=== PATIENT | female | born 1930 | race Caucasian/White ===

== ENCOUNTER 2017-03-21 16:23 | Observation (INO) | payer OTHER, MEDICARE ==
[2017-03-21] MEDS ORDERED: DIPHENHYDRAMINE HCL IV 50 MG/ML VIAL IVP ONE (16:49)
[2017-03-21] MEDS ORDERED: METHYLPREDNISOLONE PF 125MG/VIAL IVP ONE (16:49)
--- NOTE | 2017-03-21 16:55 | Emergency Department Record ---
History of Present Illness - General Chief complaint: Bite Insect/other Stated complaint: BEE STINGS Time Seen by Provider: 03/21/17 16:48 Source: Patient Mode of Arrival: EMS Limitations: No limitations - History of Present Illness Initial comments: The patient is here due to sustaining multiple bee stings about 2 hours ago and now feeling weak and a little confused. She was stung over the arms and legs and has had mild itching. After the encounter she did go inside her house and felt very weak and a little confused so she called 911. EMS did find the patient alert and oriented in the house with no ZORAN or voice changes. Presently she is having itching all over but no ZORAN, SOB, or swelling. The patient denies any hx of allergy to bee stings. MD complaint: Insect bite/sting Onset/Timin -: Hour(s) Location: R hand, LLE, RLE Severity: Mild Quality: Other Consistency: Intermittent Improves with: None Worsens with: None Context: Witnessed insect bite Associated symptoms: Other Treatment Prior to Arrival Comment:: IV per EMS - Related Data Allergies Allergy/AdvReac Type Severity Reaction Status Date / Time acetaminophen [From Tylenol] Allergy HYPERSENSIT Verified 03/21/17 16:32 IVITY amoxicillin Allergy HIVES Verified 03/21/17 16:32 aspirin Allergy HYPERSENSIT Verified 03/21/17 16:32 IVITY hydrochlorothiazide Allergy RASH Verified 03/21/17 16:32 [From Dyazide] lidocaine Allergy DIFFICULTY Verified 03/21/17 16:32 SWALLOWING methylprednisolone Allergy BEHAVIORAL Verified 03/21/17 16:32 CHANGES naproxen [From Naprosyn] Allergy RASH Verified 03/21/17 16:32 oxaprozin [From Daypro] Allergy bleeding Verified 03/21/17 16:32 propoxyphene napsylate Allergy RASH Verified 03/21/17 16:32 [From Darvocet-N] triamterene [From Dyazide] Allergy RASH Verified 03/21/17 16:32 diclofenac sodium AdvReac RAPID Verified 03/21/17 16:32 [From Arthrotec] HEART RATE hydrocodone bitartrate AdvReac RAPID Verified 03/21/17 16:32 [From Vicodin] HEART RATE indomethacin [From Indocin] AdvReac ABDOMINAL Verified 03/21/17 16:32 PAIN indomethacin sodium AdvReac ABDOMINAL Verified 03/21/17 16:32 [From Indocin] PAIN meperidine HCl [From Demerol] AdvReac NAUSEA AND Verified 03/21/17 16:32 VOMITING metoprolol succinate AdvReac slow heart Verified 03/21/17 16:32 [From Toprol XL] rate misoprostol [From Arthrotec] AdvReac RAPID Verified 03/21/17 16:32 HEART RATE oxycodone AdvReac DIZZINESS Verified 03/21/17 16:32 verapamil HCl [From Calan] AdvReac slow heart Verified 03/21/17 16:32 rate Travel Screening - Travel/Exposure Within Last 30 Days Have you traveled within the last 30 days?: No - Travel/Exposure Within Last Year Have you traveled outside the [place] in the last year?: No - Additonal Travel Details Have you been exposed to anyone with a communicable illness?: No - Travel Symptoms Symptom Screening: None Review of Systems Constitutional: Denies: Chills, Fever Eyes: Denies: Eye discharge ENT: Denies: Congestion, Other Respiratory: Denies: Dyspnea Past Medical History - SOCIAL HISTORY Smoking Status: Former smoker Alcohol Use: None Drug Use: None - RESPIRATORY Hx Respiratory Disorders: No - CARDIOVASCULAR Hx Cardio Disorders: Yes Hx Hypertension: Yes - NEURO Hx Neuro Disorders: No - GI Hx GI Disorders: Yes Hx Irritable Bowel: Yes Comment:: stomach issues - Hx Genitourinary Disorders: Yes Hx Bladder Problem: Yes (frequency/overactive bladder) Comment:: bladder lift surgery, hysterectomy - ENDOCRINE Hx Endocrine Disorders: No Hx Diabetes: No Hx Thyroid Disease: No - MUSCULOSKELETAL Hx Musculoskeletal Disorders: Yes Comment:: scoliosis - PSYCH Hx Psych Problems: No - HEMATOLOGY/ONCOLOGY Hx Hematology/Oncology Disorders: Yes Hx Cancer: Yes (skin) Family Medical History Any Significant Family History?: No Physical Exam - General General Appearance: Alert, Cooperative, No acute distress - Head Head exam: Atraumatic, Normocephalic, Normal inspection - Eye Eye exam: Normal appearance, PERRL - ENT Throat exam: Normal inspection. negative: Tonsillar erythema, Tonsillar exudate - Neck Neck exam: Normal inspection, Full ROM. negative: Tenderness - Respiratory Respiratory exam: Normal lung sounds bilaterally. negative: Respiratory distress - Cardiovascular Cardiovascular Exam: Regular rate, Normal rhythm, Normal heart sounds - GI/Abdominal GI/Abdominal exam: Soft, Normal bowel sounds. negative: Tenderness - Extremities Extremities exam: negative: Normal inspection (There are multiple erythematous sting lesions to the arms and legs.) - Neurological Neurological exam: Alert, Oriented X3. negative: Altered, Motor sensory deficit - Skin Skin exam: Rash (There is a blancing diffuse macular papular rash to the trunk and minimally the extremities.) Course Vital Signs 03/21/17 03/21/17 16:33 16:45 Temperature 97.4 F L Pulse Rate 72 Respiratory 18 Rate Blood Pressure 130/63 Pulse Ox 96 - Reevaluation(s) Reevaluation #1: The patient is doing very well at this time but still does have a pruritic rash all over her trunk and extremities. She has no ZORAN, cough, or SOB and is drinking normally. I did discuss the option of being discharged to home but the patient does not have anyone to stay with her and is reluctant to be discharged. Due to that I did discuss the case with Ewa (COMPUTER [employer] DES[employer]TER) and she will accept the patient to the hospital overnight. 03/21/17 17:55 Medical Decision Making - Data Complexity MDM Data: Labs Ordered and/or Reviewed - Lab Data Result diagrams: 03/21/17 16:18 03/21/17 16:18 Disposition Disposition: Admit Clinical Impression: Allergic reaction to bee sting Disposition: Still a Patient at [facility] Decision to Admit: Admit from ER Decision to Admit Date: 03/21/17 Decision to Admit Time: 17:58 Accepting Physician: Nia Time Discussed w/Accepting Physician: 17:58 Condition: (2) Stable Time of Disposition: 17:58 Quality - Quality Measures Quality Measures: N/A - Blood Pressure Screening View Details: Yes Does Patient Have Any of the Following: No Blood Pressure Classification: Hypertensive Reading Systolic Measurement: 156 Diastolic Measurement: 76 Screening for High Blood Pressure: < Pre-Hypertensive BP, F/U Documented > [ [id number]] Pre-Hypertensive Follow-up Interventions: Referral to alternative/primary care provider.
[2017-03-21 17:12] LABS: BASO % 0.1 % (0-6); EOS % 0.8 % (0-6); HEMATOCRIT 43.6 % (35.0-47.0); HEMOGLOBIN 14.2 gm/dl (11.6-16.0); MEAN CELL VOLUME 92.2 fl (81-97); MEAN CORPUSCULAR HGB CONC 32.6 g/dl (32-36); MONO % 7.1 % (0-9); PLATELET COUNT 305 K/uL (130-400); RED BLOOD COUNT 4.73 M/uL (3.80-5.40); RED CELL DISTRIBUTION WIDTH 13.7 % (11.5-14.5); WHITE BLOOD COUNT W/O DIFF 8.3 K/uL (4.2-12.2)
[2017-03-21 17:30] LABS: ALB/GLOB RATIO 1.2 (1.1-1.8); ALBUMIN 4.2 g/dL (4.0-5.0); ALKALINE PHOSPHATASE 89 U/L (35-104); ALT/SGPT 26 U/L (<33); AST/SGOT 39 U/L (10.0-35.0); BLOOD UREA NITROGEN 53.2 mg/dL (17.4-49.2); CREATININE 0.7 mg/dL (0.5-0.9); EST GLOMERULAR FILTRATION RATE > 60 mL/min; GLUCOSE,RANDOM 165 mg/dL (74-109); TOTAL PROTEIN 7.7 g/dL (6.6-8.7)
[2017-03-21] MEDS ORDERED: 0.9 % SODIUM CHLORIDE 1000ML 1,000 ML IV PRN (18:29)
[2017-03-21] MEDS ORDERED: DIPHENHYDRAMINE HCL IV 50 MG/ML VIAL IVP PRN (18:29)
[2017-03-21] MEDS ORDERED: METHYLPREDNISOLONE 40MG/VIAL IM SCH (18:45)
[2017-03-21] MEDS: METHYLPREDNISOLONE PF 125MG/VIAL IVP SCH (19:42)
[2017-03-22] MEDS: METHYLPREDNISOLONE PF 125MG/VIAL IVP SCH ×2 (02:17→09:45)
[2017-03-22] MEDS ORDERED: METOPROLOL SUCC 25 MG TAB.ER PO SCH (10:00)
--- NOTE | 2017-03-22 10:44 | History & Physical ---
History of Present Illness - Date of Service Date of Service for History & Physical: 03/22/17 - History of Present Illness Admitting Diagnosis: 1. Acute Allergic Reaction due to Multiple Bee Stings. History of Present Illness: 86 y/o female with CC multiple bee stings admitted for acute allergic reaction without anaphylaxis. Past medical history includes former smoker, HTN, IBS, overactive bladder, scoliosis, skin cancer. Prior to arrival was doing yard work and stepped in a mass of ground bees and was swarmed. Was able to get into the house. About 2 hours after being stung several times began feeling weak and disoriented and called 911. At the time of arrival was itching all extremities but denied any ZORAN, shortness or breath, throat/tongue/lip swelling or wheezing. Denies history of bee sting allergy. While in the ED VSS, no respiratory distress. Was given benedryl, soumedrol and depomedrol without adverse reaction. Labs grossly unremarkable. Admitted to floor for observation after multiple bee stings, lives alone, disorientation and weakness after being stung. 03/22/17- sitting on the side of the bed requesting discharge home. Reports itching to extremities has improved. No respiratory distress or trouble breathing. Denies any further feelings of disorientation or weakness. No new nursing concerns. Has tolerated solumedrol and benedryl without adverse reaction. PCP: Dr Sanders Travel Screening - Travel/Exposure Within Last 30 Days Have you traveled within the last 30 days?: No - Travel/Exposure Within Last Year Have you traveled outside the [place] in the last year?: No - Additonal Travel Details Have you been exposed to anyone with a communicable illness?: No - Travel Symptoms Symptom Screening: None Review of Systems Constitutional: Denies: Chills, Fever Eyes: Denies: Eye discharge ENT: Denies: Congestion, Other Respiratory: Denies: Dyspnea Past Medical History - SOCIAL HISTORY Smoking Status: Former smoker Alcohol Use: None Drug Use: None - RESPIRATORY Hx Respiratory Disorders: No - CARDIOVASCULAR Hx Cardio Disorders: Yes Hx Hypertension: Yes - NEURO Hx Neuro Disorders: No - GI Hx GI Disorders: Yes Hx Irritable Bowel: Yes Comment:: stomach issues - Hx Genitourinary Disorders: Yes Hx Bladder Problem: Yes (frequency/overactive bladder) Comment:: bladder lift surgery, hysterectomy - ENDOCRINE Hx Endocrine Disorders: No Hx Diabetes: No Hx Thyroid Disease: No - MUSCULOSKELETAL Hx Musculoskeletal Disorders: Yes Comment:: scoliosis - PSYCH Hx Psych Problems: No - HEMATOLOGY/ONCOLOGY Hx Hematology/Oncology Disorders: Yes Hx Cancer: Yes (skin) Family Medical History Any Significant Family History?: No H&P Meds/Allergies - Allergies Allergies: Allergies Allergy/AdvReac Type Severity Reaction Status Date / Time acetaminophen [From Tylenol] Allergy HYPERSENSIT Verified 03/21/17 16:32 IVITY amoxicillin Allergy HIVES Verified 03/21/17 16:32 aspirin Allergy HYPERSENSIT Verified 03/21/17 16:32 IVITY hydrochlorothiazide Allergy RASH Verified 03/21/17 16:32 [From Dyazide] lidocaine Allergy DIFFICULTY Verified 03/21/17 16:32 SWALLOWING methylprednisolone Allergy BEHAVIORAL Verified 03/21/17 16:32 CHANGES naproxen [From Naprosyn] Allergy RASH Verified 03/21/17 16:32 oxaprozin [From Daypro] Allergy bleeding Verified 03/21/17 16:32 propoxyphene napsylate Allergy RASH Verified 03/21/17 16:32 [From Darvocet-N] triamterene [From Dyazide] Allergy RASH Verified 03/21/17 16:32 diclofenac sodium AdvReac RAPID Verified 03/21/17 16:32 [From Arthrotec] HEART RATE hydrocodone bitartrate AdvReac RAPID Verified 03/21/17 16:32 [From Vicodin] HEART RATE indomethacin [From Indocin] AdvReac ABDOMINAL Verified 03/21/17 16:32 PAIN indomethacin sodium AdvReac ABDOMINAL Verified 03/21/17 16:32 [From Indocin] PAIN meperidine HCl [From Demerol] AdvReac NAUSEA AND Verified 03/21/17 16:32 VOMITING metoprolol succinate AdvReac slow heart Verified 03/21/17 16:32 [From Toprol XL] rate misoprostol [From Arthrotec] AdvReac RAPID Verified 03/21/17 16:32 HEART RATE oxycodone AdvReac DIZZINESS Verified 03/21/17 16:32 verapamil HCl [From Calan] AdvReac slow heart Verified 03/21/17 16:32 rate - Home Medications Previous Rx's Medication Instructions Recorded Prednisone [Prednisone 20Mg] 40 mg PO DAILY #10 tab 03/22/17 - Active Medications Active Medications: Current Medications Diphenhydramine HCl (Benadryl Iv) 25 mg IVP Q6H PRN PRN Reason: Allergy Symptoms Last Admin: 03/22/17 01:05 Dose: 25 mg Sodium Chloride () 1,000 mls @ 75 mls/hr IV .[id number] PRN PRN Reason: LARGE VOLUME IV Last Admin: 03/22/17 02:18 Dose: 75 mls/hr Methylprednisolone Sodium Succinate (Solu-Medrol) 40 mg IVP Q8H COUNTS INCLUDE 234 BEDS AT THE [facility] Last Admin: 03/22/17 09:45 Dose: 40 mg Metoprolol Succinate (Toprol Xl) 12.5 mg PO DAILY COUNTS INCLUDE 234 BEDS AT THE [facility] Last Admin: 03/22/17 09:45 Dose: 12.5 mg Physical Exam - Vital Signs Vital Signs: Vital Signs - Last 24 Hrs Temp Pulse Resp BP BP Pulse Ox 03/22/17 03:50 97.9 F 72 18 136/80 94 L 03/21/17 18:29 97.4 F L 69 18 163/87 96 - General General Appearance: Alert, Oriented x3, Cooperative, No acute distress Limitations: No limitations - Head Head exam: Atraumatic, Normocephalic, Normal inspection - Eye Eye exam: Normal appearance, PERRL - ENT ENT exam: Normal orophraynx Mouth exam: Tongue normal. negative: Muffled voice Throat exam: Normal inspection. negative: Tonsillar erythema, Tonsillar exudate - Neck Neck exam: Normal inspection, Full ROM. negative: Tenderness - Respiratory Respiratory exam: Normal lung sounds bilaterally. negative: Respiratory distress - Cardiovascular Cardiovascular Exam: Regular rate, Normal rhythm, Normal heart sounds - GI/Abdominal GI/Abdominal exam: Soft, Normal bowel sounds. negative: Tenderness - Extremities Extremities exam: negative: Normal inspection (There are multiple erythematous sting lesions to the arms and legs.) - Neurological Neurological exam: Alert, Oriented X3. negative: Altered, Motor sensory deficit - Skin Skin exam: Rash (There is a blanching diffuse macular papular rash to the trunk and minimally the extremities. No wheals noted.) Results - Labs Result Diagrams: 03/21/17 16:18 03/21/17 16:18 VTE H&P Assessment - Risk for VTE Risk for VTE: Yes Risk Level: Low Risk Assessment Date: 03/22/17 Risk Assessment Time: 12:48 VTE Orders Placed or Will Be Placed: Yes Plan - Detailed Diagnosis and Plan (1) Allergic reaction to bee sting Current Visit: Yes Status: Acute Base Code: T63.441A - TOXIC EFFECT OF VENOM OF BEES, ACCIDENTAL, INIT Comment: 03/22/17 - no anaphylactic reaction - has tolerated solumedrol and benedryl - itching has improved - ambulating independently in facility - no further disorientation or weakness - discharge today with follow up with PCP 1-2 weeks (2) Altered mental status Current Visit: No Status: Acute Qualifiers: Altered mental status type: unspecified Qualified Code(s): R41.82 - Altered mental status, unspecified Base Code: R41.82 - ALTERED MENTAL STATUS, UNSPECIFIED Comment: 03/22/17 - likely related to traumatic event - has not been disoriented since admit (3) DVT prophylaxis Current Visit: No Status: Acute Base Code: [id number] - Comment: 03/22/17- nursing to encourage frequent ambulation (4) Full code status Current Visit: No Status: Acute Base Code: Z78.9 - OTHER SPECIFIED HEALTH STATUS Comment: 03/22/17- will remain full code during this hospitalization
--- NOTE | 2017-03-22 10:46 | Discharge Summary ---
Providers Discharge Summary Date: 03/22/17 Date of admission: 03/21/17 18:27 Expected Date of Discharge: 03/22/17 Attending physician: DAMASO SAHNI Primary care physician: Estella Sanders Physical Exam - Vital Signs Vital Signs: Vital Signs - Last 24 Hrs Temp Pulse Resp BP BP Pulse Ox 03/22/17 03:50 97.9 F 72 18 136/80 94 L 03/21/17 18:29 97.4 F L 69 18 163/87 96 - General General Appearance: Alert, Cooperative, No acute distress Limitations: No limitations - Head Head exam: Atraumatic, Normocephalic, Normal inspection - Eye Eye exam: Normal appearance, PERRL - ENT Throat exam: Normal inspection. negative: Tonsillar erythema, Tonsillar exudate - Neck Neck exam: Normal inspection, Full ROM. negative: Tenderness - Respiratory Respiratory exam: Normal lung sounds bilaterally. negative: Respiratory distress - Cardiovascular Cardiovascular Exam: Regular rate, Normal rhythm, Normal heart sounds - GI/Abdominal GI/Abdominal exam: Soft, Normal bowel sounds. negative: Tenderness - Extremities Extremities exam: negative: Normal inspection (There are multiple erythematous sting lesions to the arms and legs.) - Neurological Neurological exam: Alert, Oriented X3. negative: Altered, Motor sensory deficit - Skin Skin exam: Rash (There is a blancing diffuse macular papular rash to the trunk and minimally the extremities.) Hospitalization - Hospitalization Admission Diagnosis: 1. Acute Allergic Reaction due to Multiple Bee Stings. - Problem List/Discharge Diagnosis (1) Allergic reaction to bee sting Current Visit: Yes Status: Acute Base Code: T63.441A - TOXIC EFFECT OF VENOM OF BEES, ACCIDENTAL, INIT Comment: 03/22/17 - no anaphylactic reaction - has tolerated solumedrol and benedryl - itching has improved, will transition to PO steroids at discharge - ambulating independently in facility - no further disorientation or weakness - discharge today with follow up with PCP 1-2 weeks (2) Altered mental status Current Visit: No Status: Acute Discharge Diagnosis: Altered mental status type: unspecified Qualified Code(s): R41.82 - Altered mental status, unspecified Base Code: R41.82 - ALTERED MENTAL STATUS, UNSPECIFIED Comment: 03/22/17 - likely related to traumatic event - has not been disoriented since admit (3) DVT prophylaxis Current Visit: No Status: Acute Base Code: [id number] - Comment: 03/22/17- nursing to encourage frequent ambulation (4) Full code status Current Visit: No Status: Acute Base Code: Z78.9 - OTHER SPECIFIED HEALTH STATUS Comment: 03/22/17- will remain full code during this hospitalization - Hospitalization Course Disposition: Home, Self-Care Hospital Course: 86 y/o female with CC multiple bee stings admitted for acute allergic reaction without anaphylaxis. Past medical history includes former smoker, HTN, IBS, overactive bladder, scoliosis, skin cancer. Prior to arrival was doing yard work and stepped in a mass of ground bees and was swarmed. Was able to get into the house. About 2 hours after being stung several times began feeling weak and disoriented and called 911. At the time of arrival was itching all extremities but denied any ZORAN, shortness or breath, throat/tongue/lip swelling or wheezing. Denies history of bee sting allergy. While in the ED VSS, no respiratory distress. Was given benedryl, soumedrol and depomedrol without adverse reaction. Labs grossly unremarkable. Admitted to floor for observation after multiple bee stings, lives alone, disorientation and weakness after being stung. 03/22/17- sitting on the side of the bed requesting discharge home. Reports itching to extremities has improved. No respiratory distress or trouble breathing. Denies any further feelings of disorientation or weakness. No new nursing concerns. Has tolerated solumedrol and benedryl without adverse reaction. PCP: Dr Sanders Condition at Discharge: (2) Stable Discharge Medications - Discharge Medications Prescriptions: Prednisone [Prednisone 20Mg] 40 mg PO DAILY #10 tab Home Medications: Ambulatory Orders Metoprolol Succinate 12.5 mg PO DAILY 11/26/15 [Last Taken 03/21/17] Prednisone [Prednisone 20Mg] 40 mg PO DAILY #10 tab 03/22/17 [Last Taken Unknown ] Discharge Plan - Discharge Instructions Activity at Discharge: Resume Usual Activities As Tolerated Diet at Discharge: Regular Diet Additional Instructions: follow up with PCP 1-2 weeks Quality Measures - Quality Measures Quality Measures: Advance Directives, Documentation of Current Medications in Medical Record, Elder Maltreatment Screen and Follow-Up Plan, Screening for High Blood Pressure and F/U Documented - Current Medications Quality Measure: Measure #130: Documentation of Current Medications Documentation of Current Medications: <Current Medications Documented/Reviewed> [G1827] - Blood Pressure Screening Quality Measure: Screening for High Blood Pressure and Follow-Up Documented Does Patient Have Any of the Following: Active Dx of HTN Blood Pressure Classification: Hypertensive Reading Systolic Measurement: 156 Diastolic Measurement: 76 Screening for High Blood Pressure: Patient Exclusion, Hx of HTN [G9744] - Advance Directives Quality Measure: Measure #47: Care Plan Advance Directives Established: No Advance Directives Information Provided To Patient: No Advance Directives on File: No Living Will: No Power of Yard Demurrage Clerk: Yes Power of Yard Demurrage Clerk Name: eleazar baeza Advance Care Planning: <Care Plan/Decision Maker Documented; Discussed & Documented> [[id number]] - Elder Abuse Suspicion Index Screening: Elder Abuse Suspicion Index Screening Rely on people for bathing, dressing, shopping, banking, etc: No Prevented from getting food, clothes, medication, etc: No Made to feel shamed or threatened by someone: No Forced to sign papers or use money against will: No Feel afraid, touched in ways not wanted or hurt physically: No Poor eye contact, withdrawn, malnourished, cuts or bruises: No Screening Result: Negative result EASI Reference Information: Chema BECERRA, Bridget C, Piero D, Misa M.Development and validation of a tool to assist physicians identification of elder abuse: The Elder Abuse Suspicion Index (EASI ). Journal of Elder Abuse and Neglect, 2008; 20 (3): 276-300. - Elder Maltreatment Screen Quality Measures: Elder Maltreatment Screen and Follow-Up Plan Elder Maltreatment Screen: <Negative, No Follow-Up Plan Required> [G8734]
== END 2017-03-22 11:15 | disposition home or self-care (01) ==
LOC: ER 16:23 → MEDSURG 18:27
PROVIDERS: ADMIT Family Medicine; ATTEND Family Medicine
DX: T63.441A Toxic effect of venom of bees, accidental (unintentional), initial encounter (principal); Z87.891 Personal history of nicotine dependence; I10 Essential (primary) hypertension; M41.9 Scoliosis, unspecified; K58.9 Irritable bowel syndrome, unspecified
CPT/HCPCS: 99285 ×2; 96374; 96375; 85025; 80053; G0378 ×2; 99220; J1200; J2930

== ENCOUNTER 2017-03-22 18:58 | Emergency (ER) | payer OTHER, MEDICARE ==
[2017-03-22] MEDS: METHYLPREDNISOLONE PF 125MG/VIAL IVP ONE (19:17)
[2017-03-22] MEDS: DIPHENHYDRAMINE HCL IV 50 MG/ML VIAL IVP ONE (19:17)
--- NOTE | 2017-03-22 19:21 | Emergency Department Record ---
History of Present Illness - General Chief complaint: Bite Insect/other Stated complaint: BEE STINGS Time Seen by Provider: 03/22/17 19:07 Source: Patient Mode of Arrival: Wheelchair Limitations: No limitations - History of Present Illness Initial comments: pt has multiple bee stings for the 2nd day in a row. she came here yesterday and was hospitalized for bee stings. she went home today and received multiple more stings in her front yard. she is having no darian or swallowing. she does have hives MD complaint: Insect bite/sting Onset/Timin -: Minutes(s) Hx Tetanus Toxoid Vaccination: Yes Patient Tetanus UTD (within 5 yrs): Yes Location: Generalized, Head, Face, Back, LUE, RUE, LLE, RLE Severity: Moderate Quality: Other Consistency: Getting worse Improves with: Cold therapy, Medication Worsens with: Movement, Other Context: Witnessed insect bite Associated symptoms: Itching Treatments Prior to Arrival: None - Related Data Previous Rx's Medication Instructions Recorded Prednisone [Prednisone 20Mg] 40 mg PO DAILY #10 tab 03/22/17 Allergies Allergy/AdvReac Type Severity Reaction Status Date / Time acetaminophen [From Tylenol] Allergy HYPERSENSIT Verified 03/21/17 16:32 IVITY amoxicillin Allergy HIVES Verified 03/21/17 16:32 aspirin Allergy HYPERSENSIT Verified 03/21/17 16:32 IVITY hydrochlorothiazide Allergy RASH Verified 03/21/17 16:32 [From Dyazide] lidocaine Allergy DIFFICULTY Verified 03/21/17 16:32 SWALLOWING methylprednisolone Allergy BEHAVIORAL Verified 03/21/17 16:32 CHANGES naproxen [From Naprosyn] Allergy RASH Verified 03/21/17 16:32 oxaprozin [From Daypro] Allergy bleeding Verified 03/21/17 16:32 propoxyphene napsylate Allergy RASH Verified 03/21/17 16:32 [From Darvocet-N] triamterene [From Dyazide] Allergy RASH Verified 03/21/17 16:32 diclofenac sodium AdvReac RAPID Verified 03/21/17 16:32 [From Arthrotec] HEART RATE hydrocodone bitartrate AdvReac RAPID Verified 03/21/17 16:32 [From Vicodin] HEART RATE indomethacin [From Indocin] AdvReac ABDOMINAL Verified 03/21/17 16:32 PAIN indomethacin sodium AdvReac ABDOMINAL Verified 03/21/17 16:32 [From Indocin] PAIN meperidine HCl [From Demerol] AdvReac NAUSEA AND Verified 03/21/17 16:32 VOMITING metoprolol succinate AdvReac slow heart Verified 03/21/17 16:32 [From Toprol XL] rate misoprostol [From Arthrotec] AdvReac RAPID Verified 03/21/17 16:32 HEART RATE oxycodone AdvReac DIZZINESS Verified 03/21/17 16:32 verapamil HCl [From Calan] AdvReac slow heart Verified 03/21/17 16:32 rate Travel Screening - Travel/Exposure Within Last 30 Days Have you traveled within the last 30 days?: No - Travel Symptoms Symptom Screening: None Review of Systems Reviewed: No additional complaints except as noted below Constitutional: Reports: As per HPI. Denies: Chills, Fever, Malaise, Night sweats, Weakness, Weight change Eyes: Reports: As per HPI. Denies: Eye discharge, Eye pain, Photophobia, Vision change ENT: Reports: As per HPI. Denies: Congestion, Dental pain, Ear pain, Epistaxis , Hearing loss, Throat pain Respiratory: Reports: As per HPI. Denies: Cough, Dyspnea, Hemoptysis, Stridor, Wheezes Cardiovascular: Reports: As per HPI. Denies: Arrhythmia, Chest pain, Dyspnea on exertion, Edema, Murmurs, Orthopnea, Palpitations, Paroxysmal nocturnal dyspnea, Rheumatic Fever, Syncope Endocrine: Reports: As per HPI. Denies: Fatigue, Heat or cold intolerance, Polydipsia, Polyuria Gastrointestinal: Reports: As per HPI. Denies: Abdominal pain, Constipation, Diarrhea, Hematemesis, Hematochezia, Melena, Nausea, Vomiting Genitourinary: Reports: As per HPI. Denies: Abnormal menses, Discharge, Dyspareunia, Dysuria, Frequency, Hematuria, Incontinence, Retention, Urgency Musculoskeletal: Reports: As per HPI. Denies: Arthralgia, Back pain, Gout, Joint swelling, Myalgia, Neck pain Skin: Reports: As per HPI. Denies: Bruising, Change in color, Change in hair/ nails, Lesions, Pruritus, Rash Neurological: Reports: As per HPI. Denies: Abnormal gait, Confusion, Headache, Numbness, Paresthesias, Seizure, Tingling, Tremors, Vertigo, Weakness Psychiatric: Reports: As per HPI. Denies: Anxiety, Auditory hallucinations, Depression, Homicidal thoughts, Suicidal thoughts, Visual hallucinations Hematological/Lymphatic: Reports: As per HPI. Denies: Anemia, Blood Clots, Easy bleeding, Easy bruising, Swollen glands Past Medical History - SOCIAL HISTORY Smoking Status: Former smoker Alcohol Use: None Drug Use: None - RESPIRATORY Hx Respiratory Disorders: No - CARDIOVASCULAR Hx Cardio Disorders: Yes Hx Hypertension: Yes - NEURO Hx Neuro Disorders: No - GI Hx GI Disorders: Yes Hx Irritable Bowel: Yes Comment:: stomach issues - Hx Genitourinary Disorders: Yes Hx Bladder Problem: Yes (frequency/overactive bladder) Comment:: bladder lift surgery, hysterectomy - ENDOCRINE Hx Endocrine Disorders: No Hx Diabetes: No Hx Thyroid Disease: No - MUSCULOSKELETAL Hx Musculoskeletal Disorders: Yes Comment:: scoliosis - PSYCH Hx Psych Problems: No - HEMATOLOGY/ONCOLOGY Hx Hematology/Oncology Disorders: Yes Hx Cancer: Yes (skin) Family Medical History Any Significant Family History?: Yes Hx Cancer: Brother/Sister Hx Heart Disease: Father Physical Exam - General General Appearance: Alert, Oriented x3, Cooperative, Mild distress - Head Head exam: Normal inspection - Eye Eye exam: Normal appearance, PERRL, EOMI Pupils: Normal accommodation - ENT ENT exam: Normal exam, Mucous membranes moist, Normal external ear exam, Normal orophraynx Ear exam: Normal external inspection. negative: External canal tenderness Nasal Exam: Normal inspection. negative: Discharge, Sinus tenderness Mouth exam: Normal external inspection, Tongue normal Teeth exam: Normal inspection. negative: Dental caries Throat exam: Normal inspection. negative: Tonsillar erythema, Tonsillar exudate - Neck Neck exam: Normal inspection, Full ROM. negative: Tenderness - Respiratory Respiratory exam: Normal lung sounds bilaterally. negative: Respiratory distress - Cardiovascular Cardiovascular Exam: Regular rate, Normal rhythm, Normal heart sounds - GI/Abdominal GI/Abdominal exam: Soft, Normal bowel sounds. negative: Tenderness - Rectal Rectal exam: Deferred - exam: Deferred - Extremities Extremities exam: Normal inspection, Full ROM, Normal capillary refill. negative: Tenderness - Back Back exam: Reports: Normal inspection, Full ROM. Denies: Muscle spasm, Rash noted, Tenderness - Neurological Neurological exam: Alert, CN II-XII intact, Normal gait, Oriented X3 - Psychiatric Psychiatric exam: Normal affect, Normal mood - Skin Skin exam: Dry, Erythema, Intact, Normal color, Urticaria, Warm Type of lesion: Bite/sting Distribution of rash: Face, RUE, LUE, RLE, LLE Description of rash: Urticarial Course Vital Signs 03/22/17 19:02 Temperature 97.9 F Pulse Rate 89 Respiratory 24 Rate Blood Pressure 132/78 Pulse Ox 91 L - Reevaluation(s) Reevaluation #1: 03/22/17 22:00 pt is doing much better Disposition Disposition: Discharge Clinical Impression: Bee sting reaction Qualifiers: Encounter type: initial encounter Injury intent: accidental or unintentional Qualified Code(s): T63.441A - Toxic effect of venom of bees, accidental ( unintentional), initial encounter Disposition: Home, Self-Care Condition: (1) Good Instructions: Insect Bite or Sting (ED) Additional Instructions: follow up with family doctor. return sooner if worse. benadryl 25mg every 6 hours if needed. avoid bees. Forms: Patient Portal Access Quality - Quality Measures Quality Measures: N/A - Blood Pressure Screening Does Patient Have Any of the Following: No Blood Pressure Classification: Pre-Hypertensive BP Reading Systolic Measurement: 132 Diastolic Measurement: 78 Screening for High Blood Pressure: < Pre-Hypertensive BP, F/U Documented > [ [id number]] Pre-Hypertensive Follow-up Interventions: Follow-up with rescreen every year.
== END 2017-03-22 22:05 | disposition home or self-care (01) ==
LOC: ER 18:58
DX: T63.441A Toxic effect of venom of bees, accidental (unintentional), initial encounter (principal); L50.9 Urticaria, unspecified; Y92.007 Garden or yard of unspecified non-institutional (private) residence as the place of occurrence of the external cause
CPT/HCPCS: 96374; 96375; 99284; J1200; J2930

== ENCOUNTER 2017-07-06 10:54 | Observation (INO) | payer MEDICARE, BC ==
[2017-07-06] MEDS ORDERED: NITROGLYCERIN 0.4MG SL TABLET #25 BTL SL ONE (11:19)
[2017-07-06 11:38] LABS: HEMATOCRIT 43.1 % (35.0-47.0); HEMOGLOBIN 13.9 gm/dl (11.6-16.0); MEAN CELL VOLUME 93.5 fl (81-97); MEAN CORPUSCULAR HEMOGLOBIN 30.2 pg (27-33); MEAN CORPUSCULAR HGB CONC 32.3 g/dl (32-36); MEAN PLATELET VOLUME 11.9 fl (7.4-10.4); PLATELET COUNT 286 K/uL (130-400); RED BLOOD COUNT 4.61 M/uL (3.80-5.40); RED CELL DISTRIBUTION WIDTH 13.9 % (11.5-14.5); WHITE BLOOD COUNT W/O DIFF 14.7 K/uL (4.2-12.2)
[2017-07-06 11:47] LABS: BLOOD UREA NITROGEN 19 mg/dL (8-23); CREATININE 0.5 mg/dL (0.5-0.9); EST GLOMERULAR FILTRATION RATE > 60 mL/min
[2017-07-06 11:50] LABS: GLUCOSE,RANDOM 95 mg/dL (74-109)
[2017-07-06 11:53] LABS: CREATINE PHOSPHOKINASE 46 U/L (26-192)
--- NOTE | 2017-07-06 12:21 | Emergency Department Record ---
History of Present Illness - General Chief Complaint: Chest Pain Stated Complaint: CHEST PAIN Time Seen by Provider: 07/06/17 11:14 Source: Patient Mode of Arrival: Wheelchair Limitations: No limitations - History of Present Illness Initial Comments: pt started having cp last night intermittantly that radiates to her jaw and arm and shoulder Onset/Timin -: Days(s) Onset: During rest Pain Location: Left chest Pain Radiation: LUE, Jaw/teeth Severity scale (1-10): 10 Quality: Sharp Consistency: Intermittent Improves With: Nothing Worsens With: Nothing Treatments Prior to Arrival: None - Related Data Allergies Allergy/AdvReac Type Severity Reaction Status Date / Time acetaminophen [From Tylenol] Allergy HYPERSENSIT Verified 03/21/17 16:32 IVITY amoxicillin Allergy HIVES Verified 03/21/17 16:32 aspirin Allergy HYPERSENSIT Verified 03/21/17 16:32 IVITY hydrochlorothiazide Allergy RASH Verified 03/21/17 16:32 [From Dyazide] lidocaine Allergy DIFFICULTY Verified 03/21/17 16:32 SWALLOWING methylprednisolone Allergy BEHAVIORAL Verified 03/21/17 16:32 CHANGES naproxen [From Naprosyn] Allergy RASH Verified 03/21/17 16:32 oxaprozin [From Daypro] Allergy bleeding Verified 03/21/17 16:32 propoxyphene napsylate Allergy RASH Verified 03/21/17 16:32 [From Darvocet-N] triamterene [From Dyazide] Allergy RASH Verified 03/21/17 16:32 diclofenac sodium AdvReac RAPID Verified 03/21/17 16:32 [From Arthrotec] HEART RATE hydrocodone bitartrate AdvReac RAPID Verified 03/21/17 16:32 [From Vicodin] HEART RATE indomethacin [From Indocin] AdvReac ABDOMINAL Verified 03/21/17 16:32 PAIN indomethacin sodium AdvReac ABDOMINAL Verified 03/21/17 16:32 [From Indocin] PAIN meperidine HCl [From Demerol] AdvReac NAUSEA AND Verified 03/21/17 16:32 VOMITING metoprolol succinate AdvReac slow heart Verified 03/21/17 16:32 [From Toprol XL] rate misoprostol [From Arthrotec] AdvReac RAPID Verified 03/21/17 16:32 HEART RATE oxycodone AdvReac DIZZINESS Verified 03/21/17 16:32 verapamil HCl [From Calan] AdvReac slow heart Verified 03/21/17 16:32 rate Travel Screening - Travel/Exposure Within Last 30 Days Have you traveled within the last 30 days?: No Review of Systems Reviewed: No additional complaints except as noted below Constitutional: Reports: As per HPI. Denies: Chills, Fever, Malaise, Night sweats, Weakness, Weight change Eyes: Reports: As per HPI. Denies: Eye discharge, Eye pain, Photophobia, Vision change ENT: Reports: As per HPI. Denies: Congestion, Dental pain, Ear pain, Epistaxis , Hearing loss, Throat pain Respiratory: Reports: As per HPI. Denies: Cough, Dyspnea, Hemoptysis, Stridor, Wheezes Cardiovascular: Reports: As per HPI. Denies: Arrhythmia, Chest pain, Dyspnea on exertion, Edema, Murmurs, Orthopnea, Palpitations, Paroxysmal nocturnal dyspnea, Rheumatic Fever, Syncope Endocrine: Reports: As per HPI. Denies: Fatigue, Heat or cold intolerance, Polydipsia, Polyuria Gastrointestinal: Reports: As per HPI. Denies: Abdominal pain, Constipation, Diarrhea, Hematemesis, Hematochezia, Melena, Nausea, Vomiting Genitourinary: Reports: As per HPI. Denies: Abnormal menses, Discharge, Dyspareunia, Dysuria, Frequency, Hematuria, Incontinence, Retention, Urgency Musculoskeletal: Reports: As per HPI. Denies: Arthralgia, Back pain, Gout, Joint swelling, Myalgia, Neck pain Skin: Reports: As per HPI. Denies: Bruising, Change in color, Change in hair/ nails, Lesions, Pruritus, Rash Neurological: Reports: As per HPI. Denies: Abnormal gait, Confusion, Headache, Numbness, Paresthesias, Seizure, Tingling, Tremors, Vertigo, Weakness Psychiatric: Reports: As per HPI. Denies: Anxiety, Auditory hallucinations, Depression, Homicidal thoughts, Suicidal thoughts, Visual hallucinations Hematological/Lymphatic: Reports: As per HPI. Denies: Anemia, Blood Clots, Easy bleeding, Easy bruising, Swollen glands Past Medical History - SOCIAL HISTORY Smoking Status: Former smoker Alcohol Use: None Drug Use: None - RESPIRATORY Hx Respiratory Disorders: No - CARDIOVASCULAR Hx Cardio Disorders: Yes Hx Hypertension: Yes - NEURO Hx Neuro Disorders: No - GI Hx GI Disorders: Yes Hx Irritable Bowel: Yes Comment:: stomach issues - Hx Genitourinary Disorders: Yes Hx Bladder Problem: Yes (frequency/overactive bladder) Comment:: bladder lift surgery, hysterectomy - ENDOCRINE Hx Endocrine Disorders: No Hx Diabetes: No Hx Thyroid Disease: No - MUSCULOSKELETAL Hx Musculoskeletal Disorders: Yes Comment:: scoliosis - PSYCH Hx Psych Problems: No - HEMATOLOGY/ONCOLOGY Hx Hematology/Oncology Disorders: Yes Hx Cancer: Yes (skin) Family Medical History Any Significant Family History?: Yes Hx Cancer: Brother/Sister Hx Heart Disease: Father Physical Exam - General General Appearance: Alert, Oriented x3, Cooperative, Mild distress - Head Head exam: Normal inspection - Eye Eye exam: Normal appearance, PERRL, EOMI Pupils: Normal accommodation - ENT ENT exam: Normal exam, Mucous membranes moist, Normal external ear exam, Normal orophraynx Ear exam: Normal external inspection. negative: External canal tenderness Nasal Exam: Normal inspection. negative: Discharge, Sinus tenderness Mouth exam: Normal external inspection, Tongue normal Teeth exam: Normal inspection. negative: Dental caries Throat exam: Normal inspection. negative: Tonsillar erythema, Tonsillar exudate - Neck Neck exam: Normal inspection, Full ROM. negative: Tenderness - Respiratory Respiratory exam: Normal lung sounds bilaterally. negative: Respiratory distress - Cardiovascular Cardiovascular Exam: Regular rate, Normal rhythm, Normal heart sounds - GI/Abdominal GI/Abdominal exam: Soft, Normal bowel sounds. negative: Tenderness - Rectal Rectal exam: Deferred - exam: Deferred - Extremities Extremities exam: Normal inspection, Full ROM, Normal capillary refill. negative: Tenderness - Back Back exam: Reports: Normal inspection, Full ROM. Denies: Muscle spasm, Rash noted, Tenderness - Neurological Neurological exam: Alert, CN II-XII intact, Normal gait, Oriented X3 - Psychiatric Psychiatric exam: Normal affect, Normal mood - Skin Skin exam: Dry, Intact, Normal color, Warm Course Vital Signs 07/06/17 11:00 Temperature 97.8 F Pulse Rate [ 83 Cancer Registrar ] Respiratory 20 Rate Blood Pressure 201/90 [Right Arm] Pulse Ox 97 Medical Decision Making - Lab Data Result diagrams: 07/06/17 11:06 07/06/17 11:06 Lab Results 07/06/17 07/06/17 07/06/17 Range/Units 11:06 11:06 11:06 WBC 14.7 H (4.2-12.2) K/uL RBC 4.61 (3.80-5.40) M/uL Hgb 13.9 (11.6-16.0) gm/dl Hct 43.1 (35.0-47.0) % MCV 93.5 (81-97) fl MCH 30.2 (27-33) pg MCHC 32.3 (32-36) g/dl RDW 13.9 (11.5-14.5) % Plt Count 286 (130-400) K/uL MPV 11.9 H (7.4-10.4) fl Neutrophils % 70.0 (47-80) % Eosinophils % Not Reportable Basophils % Not Reportable Lymphocytes 16.0 (16-45) % Monocytes 14.0 H (0-9) % D-Dimer 1.56 H (0-0.59) mg/L FEU Sodium 137 (136-145) mmol/L Potassium 4.2 (3.4-4.5) mmol/L Chloride 95 L (98-107) mmol/L Carbon Dioxide 26.0 (22-29) mmol/L Anion Gap 16.0 (7-16) BUN 19 (8-23) mg/dL Creatinine 0.5 (0.5-0.9) mg/dL Estimated GFR > 60 mL/min Random Glucose 95 (74-109) mg/dL Calcium 10.0 (8.8-10.2) mg/dL Creatine Kinase 46 (26-192) U/L CK-MB (CK-2) 2.0 (<3.77) ng/mL Troponin T < 0.010 (0-0.010) ng/mL Disposition Disposition: Admit Clinical Impression: Liver mass Chest pain Qualifiers: Chest pain type: other chest pain Qualified Code(s): R07.89 - Other chest pain ; R07.8 - Other chest pain Disposition: Still a Patient at [facility] Decision to Admit: Admit from ER Decision to Admit Date: 07/06/17 Decision to Admit Time: 14:29 Forms: Patient Portal Access Quality - Quality Measures Quality Measures: N/A - Blood Pressure Screening Does Patient Have Any of the Following: Active Dx of HTN Blood Pressure Classification: Hypertensive Reading Systolic Measurement: 173 Diastolic Measurement: 75 Screening for High Blood Pressure: Patient Exclusion, Hx of HTN [G9744]
[2017-07-06 12:49] LABS: URINE APPEARANCE CLEAR; URINE BILIRUBIN NEGATIVE (NEGATIVE); URINE BLOOD NEGATIVE (NEGATIVE); URINE COLOR YELLOW; URINE GLUCOSE (UA) NEGATIVE (NEGATIVE); URINE KETONE 15 mg/dL (NEGATIVE); URINE LEUKOCYTE ESTERASE NEGATIVE (NEGATIVE); URINE NITRITE NEGATIVE (NEGATIVE); URINE PROTEIN NEGATIVE (NEGATIVE); URINE UROBILINOGEN 0.2 E.U./dL (0.20 - 1.00)
--- NOTE | 2017-07-06 21:32 | History & Physical ---
History of Present Illness - Date of Service Date of Service for History & Physical: 07/06/17 - History of Present Illness Admitting Diagnosis: chest pain and liver mass History of Present Illness: 86yo female with CC of "pain all over." She has history of htn, overactive bladder, scoliosis, skin cancer and was a former smoker. Patient presented to the ED today after experiencing pain intermittently in varied locations for the past few days. She says yesterday she started having some cramping pain in her abdomen that didn't last very long, she then had some pain in her left shoulder, mostly anterior, that was intermittent and then had an episode of some pain in the left side of her jaw. She says today when she woke up she had return of the pain in her left shoulder and decided to come to the ED. While in the ED, she had EKG that did not show any ST changes. 1st set of enzymes was wnl. She received one nitro which did help the pain in her shoulder , but then developed a headache. Her blood pressure at arrival was 201/90 which did improve with the nitro down to 141/73. Her wbc count was sightly elevated at 14.2, CMP was unremarkable, she did have elevated d-dimer at 1.56. She underwent CTA of the chest which showed a mild aortic aneurysm with no dissection, cardiomegaly with coronary calcifications and large mass in the left lobe of the liver. No evidence of PE. She was admitted for serial enzymes. 07/06/17- Patient states all of her pain has resolved. She got some tylenol when she came to the floor and is pain free currently. She denies any abdominal pain or bloating and has been having regular bowel movements. She says she never really had pain in her chest. The pain was in her left shoulder and was described as an ache, she denied having any heaviness, pressure or twisting pain in her chest. she is not feeling short of breath and denies upper respiratory symptoms. Patient states she is very active around her house, still mows her lawn and shovels her driveway and denies ever having chest pain with these activities. pcp: Dr. Sanders Travel Screening - Travel/Exposure Within Last 30 Days Have you traveled within the last 30 days?: No - Travel/Exposure Within Last Year Have you traveled outside the [place] in the last year?: No - Additonal Travel Details Have you been exposed to anyone with a communicable illness?: No - Travel Symptoms Symptom Screening: None Review of Systems Constitutional: Reports: As per HPI. Denies: Chills, Fever, Malaise, Night sweats, Weakness, Weight change Eyes: Reports: As per HPI. Denies: Eye discharge, Eye pain, Photophobia, Vision change ENT: Reports: As per HPI. Denies: Congestion, Dental pain, Ear pain, Epistaxis , Hearing loss, Throat pain Respiratory: Reports: As per HPI. Denies: Cough, Dyspnea, Hemoptysis, Stridor, Wheezes Cardiovascular: Reports: As per HPI. Denies: Arrhythmia, Chest pain, Dyspnea on exertion, Edema, Murmurs, Orthopnea, Palpitations, Paroxysmal nocturnal dyspnea, Rheumatic Fever, Syncope Endocrine: Reports: As per HPI. Denies: Fatigue, Heat or cold intolerance, Polydipsia, Polyuria Gastrointestinal: Reports: As per HPI. Denies: Abdominal pain, Constipation, Diarrhea, Hematemesis, Hematochezia, Melena, Nausea, Vomiting Genitourinary: Reports: As per HPI. Denies: Abnormal menses, Discharge, Dyspareunia, Dysuria, Frequency, Hematuria, Incontinence, Retention, Urgency Musculoskeletal: Reports: As per HPI. Denies: Arthralgia, Back pain, Gout, Joint swelling, Myalgia, Neck pain Skin: Reports: As per HPI. Denies: Bruising, Change in color, Change in hair/ nails, Lesions, Pruritus, Rash Neurological: Reports: As per HPI. Denies: Abnormal gait, Confusion, Headache, Numbness, Paresthesias, Seizure, Tingling, Tremors, Vertigo, Weakness Psychiatric: Reports: As per HPI. Denies: Anxiety, Auditory hallucinations, Depression, Homicidal thoughts, Suicidal thoughts, Visual hallucinations Hematological/Lymphatic: Reports: As per HPI. Denies: Anemia, Blood Clots, Easy bleeding, Easy bruising, Swollen glands Past Medical History - SOCIAL HISTORY Smoking Status: Former smoker Alcohol Use: None Drug Use: None - RESPIRATORY Hx Respiratory Disorders: No - CARDIOVASCULAR Hx Cardio Disorders: Yes Hx Abnormal EKG: No Hx Cardiac Cath: No Hx Chest Pain: No Hx CHF: No Hx Deep Vein Thrombosis: No Hx Edema: No Hx Heart Attack: No Hx Hypertension: Yes Hx Hypotension: No Hx Irregular Heartbeat: No Hx Palpitations: No Hx Pacemaker/Defib: No Hx Vascular Disease: No - NEURO Hx Neuro Disorders: No - GI Hx GI Disorders: Yes Hx Abdominal Pain: No Hx Celiac Disease: No Hx Crohn's Disease: No Hx Diverticulitis: No Hx GI Bleed: No Hx Reflux: No Hx Hepatitis/Jaundice: No Hx Hiatal Hernia: No Hx Irritable Bowel: Yes Hx Liver Disease: No Hx Nausea/Vomiting: No Hx Obstructive Bowel: No Hx Pancreatitis: No Hx Rectal Bleeding: No Hx Ulcer: No Hx Wt Loss/Wt Gain: No Hx of Polyps: No Comment:: stomach issues - Hx Genitourinary Disorders: Yes Hx Bladder Problem: Yes (frequency/overactive bladder) Hx Dialysis: No Hx Kidney Stones: No Hx Renal Disease: No Hx UTI: No Comment:: bladder lift surgery, hysterectomy - ENDOCRINE Hx Endocrine Disorders: No Hx Diabetes: No Hx Thyroid Disease: No - MUSCULOSKELETAL Hx Musculoskeletal Disorders: Yes Hx Arthritis: No Hx Back Injury: No Hx Fibromyalgia: No Hx Gout: No Hx Musculoskeletal Disease: No Hx Osteoporosis: No Comment:: scoliosis - PSYCH Hx Psych Problems: No - HEMATOLOGY/ONCOLOGY Hx Hematology/Oncology Disorders: Yes Hx Anemia: No Hx Blood Disorders: No Hx Bruising: No Hx Cancer: Yes (skin) Hx Chemotherapy: No Hx Radiation Therapy: No Hx Clotting Problems: No Hx Sickle Cell Disease: No Hx Unexplained Bleeding: No Hx Blood Transfusions: No Hx Blood Transfusion Reaction: No Family Medical History Any Significant Family History?: Yes Hx Cancer: Brother/Sister Hx Heart Disease: Father H&P Meds/Allergies - Allergies Allergies: Allergies Allergy/AdvReac Type Severity Reaction Status Date / Time acetaminophen [From Tylenol] Allergy HYPERSENSIT Verified 07/06/17 15:49 IVITY amoxicillin Allergy HIVES Verified 07/06/17 15:49 aspirin Allergy HYPERSENSIT Verified 07/06/17 15:49 IVITY hydrochlorothiazide Allergy RASH Verified 07/06/17 15:49 [From Dyazide] lidocaine Allergy DIFFICULTY Verified 07/06/17 15:49 SWALLOWING methylprednisolone Allergy BEHAVIORAL Verified 07/06/17 15:49 CHANGES naproxen [From Naprosyn] Allergy RASH Verified 07/06/17 15:49 oxaprozin [From Daypro] Allergy bleeding Verified 07/06/17 15:49 propoxyphene napsylate Allergy RASH Verified 07/06/17 15:49 [From Darvocet-N] triamterene [From Dyazide] Allergy RASH Verified 07/06/17 15:49 diclofenac sodium AdvReac RAPID Verified 07/06/17 15:49 [From Arthrotec] HEART RATE hydrocodone bitartrate AdvReac RAPID Verified 07/06/17 15:49 [From Vicodin] HEART RATE indomethacin [From Indocin] AdvReac ABDOMINAL Verified 07/06/17 15:49 PAIN indomethacin sodium AdvReac ABDOMINAL Verified 07/06/17 15:49 [From Indocin] PAIN meperidine HCl [From Demerol] AdvReac NAUSEA AND Verified 07/06/17 15:49 VOMITING metoprolol succinate AdvReac slow heart Verified 07/06/17 15:49 [From Toprol XL] rate misoprostol [From Arthrotec] AdvReac RAPID Verified 07/06/17 15:49 HEART RATE oxycodone AdvReac DIZZINESS Verified 07/06/17 15:49 verapamil HCl [From Calan] AdvReac slow heart Verified 07/06/17 15:49 rate Physical Exam - Vital Signs Vital Signs: Vital Signs - Last 24 Hrs Temp Pulse Pulse Resp BP BP Pulse Ox 07/06/17 20:00 98.1 F 78 20 133/80 94 L 07/06/17 17:21 98.4 F 79 18 141/72 94 L 07/06/17 15:32 17 07/06/17 15:26 79 18 176/94 07/06/17 15:25 98.3 F 78 18 158/91 94 L - General General Appearance: Alert, Oriented x3, Cooperative, No acute distress Limitations: No limitations - Head Head exam: Normal inspection - Eye Eye exam: Normal appearance, PERRL, EOMI Pupils: Normal accommodation - ENT ENT exam: Normal exam, Mucous membranes moist, Normal external ear exam, Normal orophraynx Ear exam: Normal external inspection. negative: External canal tenderness Nasal Exam: Normal inspection. negative: Discharge, Sinus tenderness Mouth exam: Normal external inspection, Tongue normal Teeth exam: Normal inspection. negative: Dental caries Throat exam: Normal inspection. negative: Tonsillar erythema, Tonsillar exudate - Neck Neck exam: Normal inspection, Full ROM. negative: Tenderness - Respiratory Respiratory exam: Normal lung sounds bilaterally. negative: Respiratory distress - Cardiovascular Cardiovascular Exam: Regular rate, Normal rhythm, Normal heart sounds - GI/Abdominal GI/Abdominal exam: Soft, Normal bowel sounds. negative: Tenderness - Rectal Rectal exam: Deferred - exam: Deferred - Extremities Extremities exam: Normal inspection, Full ROM, Normal capillary refill. negative: Tenderness - Back Back exam: Reports: Normal inspection, Full ROM. Denies: Muscle spasm, Rash noted, Tenderness - Neurological Neurological exam: Alert, CN II-XII intact, Normal gait, Oriented X3 - Psychiatric Psychiatric exam: Normal affect, Normal mood - Skin Skin exam: Dry, Intact, Normal color, Warm Results - Labs Result Diagrams: 07/06/17 11:06 07/06/17 11:06 Labs Last 24 Hours: Laboratory Results - last 24 hr 07/06/17 07/06/17 19:02 19:02 CK-MB (CK-2) 1.7 Troponin T < 0.010 VTE H&P Assessment - Risk for VTE Risk for VTE: Yes Risk Level: High Risk Assessment Date: 07/06/17 Risk Assessment Time: 21:44 VTE Orders Placed or Will Be Placed: Yes Plan - Detailed Diagnosis and Plan (1) Chest pain, rule out acute myocardial infarction Current Visit: Yes Status: Acute Base Code: R07.9 - CHEST PAIN, UNSPECIFIED Comment: 07/06/17- Patient states she never really had any true chest pain and the pain she was having in her left shoulder has resolved with tylenol. EKG was negative for ischemic changes and 1st set of CE returned wnl. DD was elevated at 1.56. CTA was negative for PE or infiltrate. CTA did show mild aneurysm without dissection and coronary artery calcifications. -continue tele -continue serial enzymes -repeat EKG 0600 -vitals q8H (2) Liver mass Current Visit: Yes Status: Acute Base Code: R16.0 - HEPATOMEGALY, NOT ELSEWHERE CLASSIFIED Comment: 07/06/17- incidental finding on CTA showed large liver mass in the left lobe which could be related to large hemangioma vs malignancy. There was also a small left adrenal mass which could be incidentaloma vs metasis. Radiologist recommended obtaining MRI of the liver with hemangioma protocol. -patient's pcp is retiring so will need to get her set up wtih new pcp for follow up. Will get this imaging study set up prior to her discharge. (3) DVT prophylaxis Current Visit: No Status: Acute Base Code: [id number] - Comment: 07/06/17- high risk with age and restricted mobility -lovenox 40mg sq daily (4) Full code status Current Visit: No Status: Acute Base Code: Z78.9 - OTHER SPECIFIED HEALTH STATUS Comment: 07/06/17- will remain full code during this hospitalization
[2017-07-06] MEDS ORDERED: ACETAMINOPHEN 325 MG TAB PO PRN (21:56)
[2017-07-07 03:39] LABS: CKMB 1.2 ng/mL (<3.77)
--- NOTE | 2017-07-07 07:54 | CT ANGIOGRAM REPORT ---
EXAM: EMERGENCY CTA OF THE CHEST FOR PE WITH POST PROCESSING HISTORY: CHEST PAIN WITH ELEVATED D-DIMER, POSSIBLE PE. TECHNIQUE: CTA of the chest was performed following the intravenous administration of 82 ml of Omnipaque 350 as the IV contrast. Post processing on an independent workstation was performed with multiple 3D MIP series obtained. Comparison: No prior chest CT. Comparison is made with the two view chest x- ray dated 05/23/16. FINDINGS: No definite PE is identified. There is mild aneurysmal dilatation of the ascending aorta measuring up to about 4.4 cm in diameter. No aneurysmal dilatation of the descending thoracic aorta evident. No thoracic aortic dissection is seen. No pleural or pericardial effusion evident. Mild cardiomegaly is present. No hilar or mediastinal adenopathy identified. no pneumothorax evident. No acute infiltrate is seen. There is spurring throughout the thoracic spine. Some coronary artery calcification is present. There is a small hiatal hernia. On the scans carried down through the lung bases, note is made of a very large mass within the left lobe of the liver measuring approximately 12 cm in transverse diameter x 8.8 cm in AP diameter. Full craniocaudal extent of the mass is not included on this chest CTA, but extends for at least 8.4 cm in craniocaudal dimension. There is some peripheral enhancement of the mass and the mass is somewhat heterogeneous. This is not a simple cyst and the nature of the mass is indeterminate. This could possible be a very large hemangioma although malignancy can certainly not be excluded with this appearance. In addition, there is a large adrenal nodule approximately 1.7 cm in size, nonspecific although a left adrenal metastasis cannot be excluded. There are also a couple low attenuation foci superiorly in the spleen, but this may just be normal heterogeneous parenchymal enhancement in the early arterial phase imaging inherent in the CTA protocol. IMPRESSION: 1. NO DEFINITE PE IDENTIFIED. 2. VERY LARGE MASS LEFT LOBE OF THE LIVER. FOLLOW-UP NONEMERGENT MRI OF THE LIVER UTILIZING HEMANGIOMA PROTOCOL SUGGESTED. MALIGNANCY CANNOT BE EXCLUDED. 3. INDETERMINATE 1.7 CM LEFT ADRENAL MASS, COULD BE AN INCIDENTAL ADENOMA OR A METASTASIS. 4. SMALL HIATAL HERNIA. 5. CARDIOMEGALY WITH CORONARY ARTERY CALCIFICATION. 6. MILD ANEURYSMAL DILATATION OF THE ASCENDING AORTA. JOB NUMBER: [id number] MTDD
--- NOTE | 2017-07-07 08:06 | Discharge Summary ---
Providers Discharge Summary Date: 07/07/17 Date of admission: 07/06/17 15:14 Expected Date of Discharge: 07/07/17 Attending physician: Ulisses Garcia Consults: Consult Orders 07/06/17 21:56 Consult - Case Management Now Comment: Reason For Exam: patient needs pcp Physical Exam - Vital Signs Vital Signs: Vital Signs - Last 24 Hrs Temp Pulse Pulse Pulse Resp BP BP 07/07/17 07:48 97.5 F L 57 L 18 132/65 07/07/17 07:22 16 07/07/17 03:24 98.2 F 64 64 16 131/75 07/07/17 00:00 98.0 F 70 18 158/73 07/06/17 21:00 63 16 07/06/17 20:00 98.1 F 78 20 133/80 07/06/17 17:21 98.4 F 79 18 141/72 07/06/17 15:32 17 07/06/17 15:26 79 18 176/94 07/06/17 15:25 98.3 F 78 18 158/91 Pulse Ox 07/07/17 07:48 95 07/07/17 07:22 07/07/17 03:24 94 L 07/07/17 00:00 93 L 07/06/17 21:00 07/06/17 20:00 94 L 07/06/17 17:21 94 L 07/06/17 15:32 07/06/17 15:26 07/06/17 15:25 94 L - General General Appearance: Alert, Oriented x3, Cooperative, No acute distress Limitations: No limitations - Head Head exam: Normal inspection - Eye Eye exam: Normal appearance, PERRL, EOMI Pupils: Normal accommodation - ENT ENT exam: Normal exam, Mucous membranes moist, Normal external ear exam, Normal orophraynx Ear exam: Normal external inspection. negative: External canal tenderness Nasal Exam: Normal inspection. negative: Discharge, Sinus tenderness Mouth exam: Normal external inspection, Tongue normal Teeth exam: Normal inspection. negative: Dental caries Throat exam: Normal inspection. negative: Tonsillar erythema, Tonsillar exudate - Neck Neck exam: Normal inspection, Full ROM. negative: Tenderness - Respiratory Respiratory exam: Normal lung sounds bilaterally. negative: Respiratory distress - Cardiovascular Cardiovascular Exam: Regular rate, Normal rhythm, Normal heart sounds - GI/Abdominal GI/Abdominal exam: Soft, Normal bowel sounds. negative: Tenderness - Rectal Rectal exam: Deferred - exam: Deferred - Extremities Extremities exam: Normal inspection, Full ROM, Normal capillary refill. negative: Tenderness - Back Back exam: Reports: Normal inspection, Full ROM. Denies: Muscle spasm, Rash noted, Tenderness - Neurological Neurological exam: Alert, CN II-XII intact, Normal gait, Oriented X3 - Psychiatric Psychiatric exam: Normal affect, Normal mood - Skin Skin exam: Dry, Intact, Normal color, Warm Hospitalization - Hospitalization Admission Diagnosis: chest pain and liver mass - Problem List/Discharge Diagnosis (1) Chest pain, rule out acute myocardial infarction Current Visit: Yes Status: Acute Base Code: R07.9 - CHEST PAIN, UNSPECIFIED Comment: 07/07/17- continues to be pain free. Patient states she never really had any true chest pain and the pain she was having in her left shoulder has resolved with tylenol. EKG was negative for ischemic changes and all 3 sets of CE returned wnl. DD was elevated at 1.56. CTA was negative for PE or infiltrate. CTA did show mild aneurysm without dissection and coronary artery calcifications. -plan to discharge home today. - has patient establishing with Dr. Kasper on 07/14/17 (2) Liver mass Current Visit: Yes Status: Acute Base Code: R16.0 - HEPATOMEGALY, NOT ELSEWHERE CLASSIFIED Comment: 07/07/17- incidental finding on CTA showed large liver mass in the left lobe which could be related to large hemangioma vs malignancy. There was also a small left adrenal mass which could be incidentaloma vs metasis. Radiologist recommended obtaining MRI of the liver with hemangioma protocol. -ordered MRI abdomen with contrast for outpatient. Nursing is going to show her to radiology on her way out and they will get her scheduled for that this upcoming Wednesday07/10/17 which is the earliest available. Results will be faxed to Dr. Kasper who patient will be following up with on the 07/14/17 (3) DVT prophylaxis Current Visit: No Status: Acute Base Code: [id number] - Comment: 07/07/17- high risk with age and restricted mobility -lovenox 40mg sq daily (4) Full code status Current Visit: No Status: Acute Base Code: Z78.9 - OTHER SPECIFIED HEALTH STATUS Comment: 07/07/17- will remain full code during this hospitalization - Hospitalization Course Disposition: Home, Self-Care Hospital Course: 86yo female with CC of "pain all over." She has history of htn, overactive bladder, scoliosis, skin cancer and was a former smoker. Patient presented to the ED today after experiencing pain intermittently in varied locations for the past few days. She says yesterday she started having some cramping pain in her abdomen that didn't last very long, she then had some pain in her left shoulder, mostly anterior, that was intermittent and then had an episode of some pain in the left side of her jaw. She says today when she woke up she had return of the pain in her left shoulder and decided to come to the ED. While in the ED, she had EKG that did not show any ST changes. 1st set of enzymes was wnl. She received one nitro which did help the pain in her shoulder , but then developed a headache. Her blood pressure at arrival was 201/90 which did improve with the nitro down to 141/73. Her wbc count was sightly elevated at 14.2, CMP was unremarkable, she did have elevated d-dimer at 1.56. She underwent CTA of the chest which showed a mild aortic aneurysm with no dissection, cardiomegaly with coronary calcifications and large mass in the left lobe of the liver. No evidence of PE. She was admitted for serial enzymes. 07/06/17- Patient states all of her pain has resolved. She got some tylenol when she came to the floor and is pain free currently. She denies any abdominal pain or bloating and has been having regular bowel movements. She says she never really had pain in her chest. The pain was in her left shoulder and was described as an ache, she denied having any heaviness, pressure or twisting pain in her chest. she is not feeling short of breath and denies upper respiratory symptoms. Patient states she is very active around her house, still mows her lawn and shovels her driveway and denies ever having chest pain with these activities. 07/07/17- Patient states she is doing well today. She has not had any pain in her chest or shoulder today. Says she is doing well with eating and having normal bowel movements. She denies any shortness of breath, abdominal pain, bloating. She is feeling ready to go home. Case management has set her up with a new pcp Dr. Kasper on 07/14/17. pcp: Dr. Sanders Procedures: Cardiology Procedures 07/06/17 17:22 EKG QDX2@0600 Condition at Discharge: (2) Stable Discharge Medications - Discharge Medications Home Medications: Ambulatory Orders Metoprolol Succinate 12.5 mg PO DAILY 11/26/15 [Last Taken 03/21/17] Discharge Plan - Discharge Instructions Activity at Discharge: Resume Usual Activities As Tolerated Diet at Discharge: Low Fat, Low Cholesterol, Low Salt Diet Instructions: Chest Pain (DC) Additional Instructions: Follow up with Dr. Kasper as scheduled on 07/14/17 Please stop by radiology to schedule your MRI of the abdomen for this Wednesday Please call with any questions or concerns Return to Ed for any new or worsening symptoms Quality Measures - Quality Measures Quality Measures: Advance Directives, Documentation of Current Medications in Medical Record, Elder Maltreatment Screen and Follow-Up Plan, Screening for High Blood Pressure and F/U Documented - Current Medications Quality Measure: Measure #130: Documentation of Current Medications Documentation of Current Medications: <Current Medications Documented/Reviewed> [G8427] - Blood Pressure Screening Quality Measure: Screening for High Blood Pressure and Follow-Up Documented Does Patient Have Any of the Following: Active Dx of HTN Blood Pressure Classification: Hypertensive Reading Systolic Measurement: 176 Diastolic Measurement: 94 Screening for High Blood Pressure: Patient Exclusion, Hx of HTN [G9744] - Advance Directives Quality Measure: Measure #47: Care Plan Advance Directives Established: No Advance Directives Information Provided To Patient: Declined Advance Directives on File: No Living Will: No Power of General Foreman: Yes Power of General Foreman Name: eleazar baeza Advance Care Planning: <Care Plan/Decision Maker Documented; Discussed & Documented> [[id number]] - Elder Abuse Suspicion Index Screening: Elder Abuse Suspicion Index Screening Rely on people for bathing, dressing, shopping, banking, etc: No Prevented from getting food, clothes, medication, etc: No Made to feel shamed or threatened by someone: No Forced to sign papers or use money against will: No Feel afraid, touched in ways not wanted or hurt physically: No Poor eye contact, withdrawn, malnourished, cuts or bruises: No Screening Result: Negative result EASI Reference Information: Chema BECERRA, Bridget Sanchez, Piero Misa Beltrán.Development and validation of a tool to assist physicians identification of elder abuse: The Elder Abuse Suspicion Index (EASI ). Journal of Elder Abuse and Neglect, 2008; 20 (3): 276-300. - Elder Maltreatment Screen Quality Measures: Elder Maltreatment Screen and Follow-Up Plan Elder Maltreatment Screen: <Negative, No Follow-Up Plan Required> [G8723]
[2017-07-07] MEDS ORDERED: ENOXAPARIN 40 MG/0.4 ML SYR SQ SCH (10:00)
[2017-07-07] MEDS ORDERED: PATIENT OWN MED: METOPROLOL SUCCINATE 25 MG PO SCH (10:00)
== END 2017-07-07 11:50 | disposition home or self-care (01) ==
LOC: ER 10:54 → MEDSURG 15:14
PROVIDERS: ADMIT Internal Medicine; ATTEND Internal Medicine
DX: R07.9 Chest pain, unspecified (principal); R16.0 Hepatomegaly, not elsewhere classified; I10 Essential (primary) hypertension; M41.9 Scoliosis, unspecified; Z87.891 Personal history of nicotine dependence; K44.9 Diaphragmatic hernia without obstruction or gangrene; I71.2 Thoracic aortic aneurysm, without rupture
CPT/HCPCS: 93041; 99285 ×2; 82550; 82553 ×2; 80048; 81003; 84484 ×2; 85379; 85027; 71275; 94760 ×2; 93005 ×2; 93010; G0378 ×2; Q9967; 99217; 99220; 99223; J1650

== ENCOUNTER 2017-10-03 16:48 | Emergency (ER) | payer MEDICARE, BC ==
--- NOTE | 2017-10-03 17:38 | Emergency Department Record ---
History of Present Illness - General Chief Complaint: Fall Injury Stated Complaint: FELL AND HIT DOOR NOSE Time Seen by Provider: 10/03/17 17:28 Mode of Arrival: Ambulatory - History of Present Illness Initial Comments: fell today and scaped her nose and she wanted it checked . NO bony pain now. No LOC and no nausea and vomiting Complaint: Fall Onset/Timin -: Hour(s) Fall From: Standing Fall Witnessed: No Place Fall Occurred: Home Prolonged Down Time?: No Symptoms Prior to Fall: None Associated Symptoms: Denies - Melody Coma Scale Eye Response: (4) Open spontaneously Motor Response: (6) Obeys commands Verbal Response: (5) Oriented Melody Total: 15 - Related Data Allergies Allergy/AdvReac Type Severity Reaction Status Date / Time acetaminophen [From Tylenol] Allergy HYPERSENSIT Verified 10/03/17 17:00 IVITY amoxicillin Allergy HIVES Verified 10/03/17 17:00 aspirin Allergy HYPERSENSIT Verified 10/03/17 17:00 IVITY hydrochlorothiazide Allergy RASH Verified 10/03/17 17:00 [From Dyazide] lidocaine Allergy DIFFICULTY Verified 10/03/17 17:00 SWALLOWING methylprednisolone Allergy BEHAVIORAL Verified 10/03/17 17:00 CHANGES naproxen [From Naprosyn] Allergy RASH Verified 10/03/17 17:00 oxaprozin [From Daypro] Allergy bleeding Verified 10/03/17 17:00 propoxyphene napsylate Allergy RASH Verified 10/03/17 17:00 [From Darvocet-N] triamterene [From Dyazide] Allergy RASH Verified 10/03/17 17:00 diclofenac sodium AdvReac RAPID Verified 10/03/17 17:00 [From Arthrotec] HEART RATE hydrocodone bitartrate AdvReac RAPID Verified 10/03/17 17:00 [From Vicodin] HEART RATE indomethacin [From Indocin] AdvReac ABDOMINAL Verified 10/03/17 17:00 PAIN indomethacin sodium AdvReac ABDOMINAL Verified 10/03/17 17:00 [From Indocin] PAIN meperidine HCl [From Demerol] AdvReac NAUSEA AND Verified 10/03/17 17:00 VOMITING metoprolol succinate AdvReac slow heart Verified 10/03/17 17:00 [From Toprol XL] rate misoprostol [From Arthrotec] AdvReac RAPID Verified 10/03/17 17:00 HEART RATE oxycodone AdvReac DIZZINESS Verified 10/03/17 17:00 verapamil HCl [From Calan] AdvReac slow heart Verified 10/03/17 17:00 rate Travel Screening - Travel/Exposure Within Last 30 Days Have you traveled within the last 30 days?: No - Travel/Exposure Within Last Year Have you traveled outside the [place] in the last year?: No - Additonal Travel Details Have you been exposed to anyone with a communicable illness?: No - Travel Symptoms Symptom Screening: None Review of Systems Reviewed: No additional complaints except as noted below Constitutional: Reports: As per HPI. Denies: Chills, Fever, Malaise, Night sweats, Weakness, Weight change Eyes: Reports: As per HPI. Denies: Eye discharge, Eye pain, Photophobia, Vision change ENT: Reports: As per HPI. Denies: Congestion, Dental pain, Ear pain, Epistaxis , Hearing loss, Throat pain Respiratory: Reports: As per HPI. Denies: Cough, Dyspnea, Hemoptysis, Stridor, Wheezes Cardiovascular: Reports: As per HPI. Denies: Arrhythmia, Chest pain, Dyspnea on exertion, Edema, Murmurs, Orthopnea, Palpitations, Paroxysmal nocturnal dyspnea, Rheumatic Fever, Syncope Endocrine: Reports: As per HPI. Denies: Fatigue, Heat or cold intolerance, Polydipsia, Polyuria Gastrointestinal: Reports: As per HPI. Denies: Abdominal pain, Constipation, Diarrhea, Hematemesis, Hematochezia, Melena, Nausea, Vomiting Genitourinary: Reports: As per HPI. Denies: Abnormal menses, Discharge, Dyspareunia, Dysuria, Frequency, Hematuria, Incontinence, Retention, Urgency Musculoskeletal: Reports: As per HPI. Denies: Arthralgia, Back pain, Gout, Joint swelling, Myalgia, Neck pain Skin: Reports: As per HPI. Denies: Bruising, Change in color, Change in hair/ nails, Lesions, Pruritus, Rash Neurological: Reports: As per HPI. Denies: Abnormal gait, Confusion, Headache, Numbness, Paresthesias, Seizure, Tingling, Tremors, Vertigo, Weakness Psychiatric: Reports: As per HPI. Denies: Anxiety, Auditory hallucinations, Depression, Homicidal thoughts, Suicidal thoughts, Visual hallucinations Hematological/Lymphatic: Reports: As per HPI. Denies: Anemia, Blood Clots, Easy bleeding, Easy bruising, Swollen glands Past Medical History - SOCIAL HISTORY Smoking Status: Former smoker Alcohol Use: None Drug Use: None - RESPIRATORY Hx Respiratory Disorders: No - CARDIOVASCULAR Hx Cardio Disorders: Yes Hx Abnormal EKG: No Hx Cardiac Cath: No Hx Chest Pain: No Hx CHF: No Hx Deep Vein Thrombosis: No Hx Edema: No Hx Heart Attack: No Hx Hypertension: Yes Hx Hypotension: No Hx Irregular Heartbeat: No Hx Palpitations: No Hx Pacemaker/Defib: No Hx Vascular Disease: No - NEURO Hx Neuro Disorders: No - GI Hx GI Disorders: Yes Hx Abdominal Pain: No Hx Celiac Disease: No Hx Crohn's Disease: No Hx Diverticulitis: No Hx GI Bleed: No Hx Reflux: No Hx Hepatitis/Jaundice: No Hx Hiatal Hernia: No Hx Irritable Bowel: Yes Hx Liver Disease: No Hx Nausea/Vomiting: No Hx Obstructive Bowel: No Hx Pancreatitis: No Hx Rectal Bleeding: No Hx Ulcer: No Hx Wt Loss/Wt Gain: No Hx of Polyps: No Comment:: stomach issues - Hx Genitourinary Disorders: Yes Hx Bladder Problem: Yes (frequency/overactive bladder) Hx Dialysis: No Hx Kidney Stones: No Hx Renal Disease: No Hx UTI: No Comment:: bladder lift surgery, hysterectomy - ENDOCRINE Hx Endocrine Disorders: No Hx Diabetes: No Hx Thyroid Disease: No - MUSCULOSKELETAL Hx Musculoskeletal Disorders: Yes Hx Arthritis: No Hx Back Injury: No Hx Fibromyalgia: No Hx Gout: No Hx Musculoskeletal Disease: No Hx Osteoporosis: No Comment:: scoliosis - PSYCH Hx Psych Problems: No - HEMATOLOGY/ONCOLOGY Hx Hematology/Oncology Disorders: Yes Hx Anemia: No Hx Blood Disorders: No Hx Bruising: No Hx Cancer: Yes (skin) Hx Chemotherapy: No Hx Radiation Therapy: No Hx Clotting Problems: No Hx Sickle Cell Disease: No Hx Unexplained Bleeding: No Hx Blood Transfusions: No Hx Blood Transfusion Reaction: No Family Medical History Any Significant Family History?: No Hx Cancer: Brother/Sister Hx Heart Disease: Father Physical Exam - General General Appearance: Alert, Oriented x3, Cooperative, No acute distress - Head Head exam: Normal inspection Head exam detail: Other (abrasion bridge of nose) - Eye Eye exam: Normal appearance, PERRL Pupils: Normal accommodation - ENT ENT exam: Normal exam, Mucous membranes moist, Normal external ear exam, Normal orophraynx, TM's normal bilaterally Ear exam: Normal external inspection. negative: External canal tenderness Nasal Exam: Normal inspection. negative: Discharge, Sinus tenderness Mouth exam: Normal external inspection, Tongue normal Teeth exam: Normal inspection. negative: Dental caries Throat exam: Normal inspection. negative: Tonsillar erythema, Tonsillar exudate - Neck Neck exam: Normal inspection, Full ROM. negative: Tenderness - Respiratory Respiratory exam: Normal lung sounds bilaterally. negative: Respiratory distress - Cardiovascular Cardiovascular Exam: Regular rate, Normal rhythm, Normal heart sounds - GI/Abdominal GI/Abdominal exam: Soft, Normal bowel sounds. negative: Tenderness - Rectal Rectal exam: Deferred - exam: Deferred - Extremities Extremities exam: Normal inspection, Full ROM, Normal capillary refill. negative: Tenderness - Back Back exam: Reports: Normal inspection, Full ROM. Denies: Muscle spasm, Rash noted, Tenderness - Neurological Neurological exam: Alert, Normal gait, Oriented X3, Reflexes normal - Psychiatric Psychiatric exam: Normal affect, Normal mood - Skin Skin exam: Dry, Intact, Normal color, Warm Course Vital Signs 10/03/17 16:55 Temperature 98.1 F Pulse Rate 71 Respiratory 16 Rate Blood Pressure 166/78 Pulse Ox 97 - Reevaluation(s) Reevaluation #1: 10/03/17 17:42 discussed nasal xray and patient decided not to get xrays Disposition Clinical Impression: Abrasion, nose without infection Disposition: Home, Self-Care Condition: (1) Good Instructions: Fall Prevention for Older Adults (ED), Abrasion (ED), Head Injury (ED) Additional Instructions: follow up with primary in 3 days tylenol for pain Forms: Patient Portal Access Time of Disposition: 17:43 Quality - Quality Measures Quality Measures: N/A - Blood Pressure Screening Does Patient Have Any of the Following: No Blood Pressure Classification: Hypertensive Reading Systolic Measurement: 166 Diastolic Measurement: 78 Screening for High Blood Pressure: < First Hypertensive BP, F/U Documented > [ G8950] First Hypertensive Follow-up Interventions: Referral to alternative/primary care provider.
[2017-10-03] MEDS ORDERED: BACIT/NEOM/POLY OINT TOP SCH (17:45)
== END 2017-10-03 17:54 | disposition home or self-care (01) ==
LOC: ER 16:48
DX: S00.31XA Abrasion of nose, initial encounter (principal); I10 Essential (primary) hypertension; Y92.009 Unspecified place in unspecified non-institutional (private) residence as the place of occurrence of the external cause; W01.10XA Fall on same level from slipping, tripping and stumbling with subsequent striking against unspecified object, initial encounter; Z87.891 Personal history of nicotine dependence
CPT/HCPCS: 99282

== ENCOUNTER 2017-11-12 07:58 | Emergency (ER) | payer MEDICARE, BC ==
[2017-11-12 10:27] LABS: HEMATOCRIT 41.5 % (35.0-47.0); HEMOGLOBIN 13.2 gm/dl (11.6-16.0); MEAN CELL VOLUME 94.7 fl (81-97); MEAN CORPUSCULAR HEMOGLOBIN 30.1 pg (27-33); MEAN CORPUSCULAR HGB CONC 31.8 g/dl (32-36); MEAN PLATELET VOLUME 11.9 fl (7.4-10.4); PLATELET COUNT 242 K/uL (130-400); RED BLOOD COUNT 4.38 M/uL (3.80-5.40); RED CELL DISTRIBUTION WIDTH 14.6 % (11.5-14.5); WHITE BLOOD COUNT W/O DIFF 14.3 K/uL (4.2-12.2)
[2017-11-12 10:33] LABS: BLOOD UREA NITROGEN 20 mg/dL (8-23); CREATININE 0.5 mg/dL (0.5-0.9); EST GLOMERULAR FILTRATION RATE > 60 mL/min
[2017-11-12 10:34] LABS: TOTAL PROTEIN 7.8 g/dL (6.6-8.7)
[2017-11-12 10:36] LABS: GLUCOSE,RANDOM 91 mg/dL (74-109)
[2017-11-12 10:38] LABS: ALB/GLOB RATIO 1.2 (1.1-1.8); ALBUMIN 4.2 g/dL (4.0-5.0); ALT/SGPT 24 U/L (<33); AST/SGOT 51 U/L (10.0-35.0)
[2017-11-12 10:39] LABS: ALKALINE PHOSPHATASE 92 U/L (35-104)
[2017-11-12 11:04] LABS: URINE APPEARANCE CLEAR; URINE BILIRUBIN NEGATIVE (NEGATIVE); URINE BLOOD NEGATIVE (NEGATIVE); URINE COLOR YELLOW; URINE GLUCOSE (UA) NEGATIVE (NEGATIVE); URINE KETONE NEGATIVE (NEGATIVE); URINE LEUKOCYTE ESTERASE NEGATIVE (NEGATIVE); URINE NITRITE NEGATIVE (NEGATIVE); URINE PROTEIN NEGATIVE (NEGATIVE); URINE UROBILINOGEN 0.2 E.U./dL (0.20 - 1.00)
--- NOTE | 2017-11-12 14:41 | Emergency Department Record ---
History of Present Illness - General Chief Complaint: Confusion Stated Complaint: CONFUSED/BRAIN ISNT WORKING Time Seen by Provider: 11/12/17 09:17 Source: Patient, Family Mode of Arrival: Wheelchair Limitations: No limitations - History of Present Illness Initial Comments: pt arrived here after driving herself c/o confusion. she has a large mass that is causing her pain. she recently was started on dilaudid. Complaint: Altered mental status, Confusion Onset/Timin -: Days(s) Severity: Moderate Consistency: Constant - Melody Coma Scale Eye Response: (4) Open spontaneously Motor Response: (6) Obeys commands Verbal Response: (4) Confused conversation [place] Total: 14 - Related Data Previous Rx's Medication Instructions Recorded Hydromorphone HCl [Dilaudid] 2 mg PO Q6H PRN 3 Days #12 tablet 11/11/17 Metoprolol Succinate [Toprol Xl] 12.5 mg PO DAILY tab.er.24h 11/11/17 Allergies Allergy/AdvReac Type Severity Reaction Status Date / Time acetaminophen [From Tylenol] Allergy HYPERSENSIT Verified 11/12/17 08:16 IVITY amoxicillin Allergy HIVES Verified 11/12/17 08:16 aspirin Allergy HYPERSENSIT Verified 11/12/17 08:16 IVITY hydrochlorothiazide Allergy RASH Verified 11/12/17 08:16 [From Dyazide] lidocaine Allergy DIFFICULTY Verified 11/12/17 08:16 SWALLOWING methylprednisolone Allergy BEHAVIORAL Verified 11/12/17 08:16 CHANGES naproxen [From Naprosyn] Allergy RASH Verified 11/12/17 08:16 oxaprozin [From Daypro] Allergy bleeding Verified 11/12/17 08:16 propoxyphene napsylate Allergy RASH Verified 11/12/17 08:16 [From Darvocet-N] triamterene [From Dyazide] Allergy RASH Verified 11/12/17 08:16 diclofenac sodium AdvReac RAPID Verified 11/12/17 08:16 [From Arthrotec] HEART RATE hydrocodone bitartrate AdvReac RAPID Verified 11/12/17 08:16 [From Vicodin] HEART RATE indomethacin [From Indocin] AdvReac ABDOMINAL Verified 11/12/17 08:16 PAIN indomethacin sodium AdvReac ABDOMINAL Verified 11/12/17 08:16 [From Indocin] PAIN meperidine HCl [From Demerol] AdvReac NAUSEA AND Verified 11/12/17 08:16 VOMITING metoprolol succinate AdvReac slow heart Verified 11/12/17 08:16 [From Toprol XL] rate misoprostol [From Arthrotec] AdvReac RAPID Verified 11/12/17 08:16 HEART RATE oxycodone AdvReac DIZZINESS Verified 11/12/17 08:16 verapamil HCl [From Calan] AdvReac slow heart Verified 11/12/17 08:16 rate Travel Screening - Travel/Exposure Within Last 30 Days Have you traveled within the last 30 days?: No - Travel/Exposure Within Last Year Have you traveled outside the [place] in the last year?: No - Additonal Travel Details Have you been exposed to anyone with a communicable illness?: No - Travel Symptoms Symptom Screening: None Review of Systems Reviewed: No additional complaints except as noted below Constitutional: Reports: As per HPI. Denies: Chills, Fever, Malaise, Night sweats, Weakness, Weight change Eyes: Reports: As per HPI. Denies: Eye discharge, Eye pain, Photophobia, Vision change ENT: Reports: As per HPI. Denies: Congestion, Dental pain, Ear pain, Epistaxis , Hearing loss, Throat pain Respiratory: Reports: As per HPI. Denies: Cough, Dyspnea, Hemoptysis, Stridor, Wheezes Cardiovascular: Reports: As per HPI. Denies: Arrhythmia, Chest pain, Dyspnea on exertion, Edema, Murmurs, Orthopnea, Palpitations, Paroxysmal nocturnal dyspnea, Rheumatic Fever, Syncope Endocrine: Reports: As per HPI. Denies: Fatigue, Heat or cold intolerance, Polydipsia, Polyuria Gastrointestinal: Reports: As per HPI, Abdominal pain. Denies: Constipation, Diarrhea, Hematemesis, Hematochezia, Melena, Nausea, Vomiting Genitourinary: Reports: As per HPI. Denies: Abnormal menses, Discharge, Dyspareunia, Dysuria, Frequency, Hematuria, Incontinence, Retention, Urgency Musculoskeletal: Reports: As per HPI. Denies: Arthralgia, Back pain, Gout, Joint swelling, Myalgia, Neck pain Skin: Reports: As per HPI. Denies: Bruising, Change in color, Change in hair/ nails, Lesions, Pruritus, Rash Neurological: Reports: As per HPI, Confusion. Denies: Abnormal gait, Headache, Numbness, Paresthesias, Seizure, Tingling, Tremors, Vertigo, Weakness Psychiatric: Reports: As per HPI. Denies: Anxiety, Auditory hallucinations, Depression, Homicidal thoughts, Suicidal thoughts, Visual hallucinations Hematological/Lymphatic: Reports: As per HPI. Denies: Anemia, Blood Clots, Easy bleeding, Easy bruising, Swollen glands Past Medical History - SOCIAL HISTORY Smoking Status: Former smoker Alcohol Use: None Drug Use: None - RESPIRATORY Hx Respiratory Disorders: No - CARDIOVASCULAR Hx Cardio Disorders: Yes Hx Abnormal EKG: No Hx Cardiac Cath: No Hx Chest Pain: No Hx CHF: No Hx Deep Vein Thrombosis: No Hx Edema: No Hx Heart Attack: No Hx Hypertension: Yes Hx Hypotension: No Hx Irregular Heartbeat: No Hx Palpitations: No Hx Pacemaker/Defib: No Hx Vascular Disease: No - NEURO Hx Neuro Disorders: No - GI Hx GI Disorders: Yes Hx Abdominal Pain: No Hx Celiac Disease: No Hx Crohn's Disease: No Hx Diverticulitis: No Hx GI Bleed: No Hx Reflux: No Hx Hepatitis/Jaundice: No Hx Hiatal Hernia: No Hx Irritable Bowel: Yes Hx Liver Disease: No Hx Nausea/Vomiting: No Hx Obstructive Bowel: No Hx Pancreatitis: No Hx Rectal Bleeding: No Hx Ulcer: No Hx Wt Loss/Wt Gain: No Hx of Polyps: No Comment:: stomach issues - Hx Genitourinary Disorders: Yes Hx Bladder Problem: Yes (frequency/overactive bladder) Hx Dialysis: No Hx Kidney Stones: No Hx Renal Disease: No Hx UTI: No Comment:: bladder lift surgery, hysterectomy - ENDOCRINE Hx Endocrine Disorders: No Hx Diabetes: No Hx Thyroid Disease: No - MUSCULOSKELETAL Hx Musculoskeletal Disorders: Yes Hx Arthritis: No Hx Back Injury: No Hx Fibromyalgia: No Hx Gout: No Hx Musculoskeletal Disease: No Hx Osteoporosis: No Comment:: scoliosis - PSYCH Hx Psych Problems: No - HEMATOLOGY/ONCOLOGY Hx Hematology/Oncology Disorders: Yes Hx Anemia: No Hx Blood Disorders: No Hx Bruising: No Hx Cancer: Yes (skin, newly diagnosed liver CA) Hx Chemotherapy: No Hx Radiation Therapy: No Hx Clotting Problems: No Hx Sickle Cell Disease: No Hx Unexplained Bleeding: No Hx Blood Transfusions: No Hx Blood Transfusion Reaction: No Family Medical History Any Significant Family History?: Yes Hx Cancer: Brother/Sister Hx Heart Disease: Father Physical Exam - General General Appearance: Alert, Cooperative, Mild distress - Head Head exam: Normal inspection - Eye Eye exam: Normal appearance, PERRL, EOMI Pupils: Normal accommodation - ENT ENT exam: Normal exam, Mucous membranes moist, Normal external ear exam, Normal orophraynx Ear exam: Normal external inspection. negative: External canal tenderness Nasal Exam: Normal inspection. negative: Discharge, Sinus tenderness Mouth exam: Normal external inspection, Tongue normal Teeth exam: Normal inspection. negative: Dental caries Throat exam: Normal inspection. negative: Tonsillar erythema, Tonsillar exudate - Neck Neck exam: Normal inspection, Full ROM. negative: Tenderness - Respiratory Respiratory exam: Normal lung sounds bilaterally. negative: Respiratory distress - Cardiovascular Cardiovascular Exam: Regular rate, Normal rhythm, Normal heart sounds - GI/Abdominal GI/Abdominal exam: Soft, Normal bowel sounds. negative: Tenderness - Rectal Rectal exam: Deferred - exam: Deferred - Extremities Extremities exam: Normal inspection, Full ROM, Normal capillary refill. negative: Tenderness - Back Back exam: Reports: Normal inspection, Full ROM. Denies: Muscle spasm, Rash noted, Tenderness - Neurological Neurological exam: Alert, CN II-XII intact, Normal gait - Psychiatric Psychiatric exam: Normal affect, Normal mood - Skin Skin exam: Dry, Intact, Normal color, Warm Course Vital Signs 11/12/17 11/12/17 08:03 10:28 Temperature 97.9 F 97.4 F L Pulse Rate 67 Pulse Rate [ 66 Pulse Ox Probe] Respiratory 20 18 Rate Blood Pressure 171/74 Blood Pressure 159/80 [Left Arm] Pulse Ox 95 95 - Reevaluation(s) Reevaluation #1: 11/12/17 14:42 pts confusion improved as dilaudid wore off. pt is refusing placement in hospice house. hospice is going to her house. case packer and sealer interviewed. pt told to not drive again Medical Decision Making - Lab Data Result diagrams: 11/12/17 10:16 11/12/17 10:16 Lab Results 11/12/17 11/12/17 11/12/17 Range/Units 10:16 10:16 10:26 WBC 14.3 H (4.2-12.2) K/uL RBC 4.38 (3.80-5.40) M/uL Hgb 13.2 (11.6-16.0) gm/dl Hct 41.5 (35.0-47.0) % MCV 94.7 (81-97) fl MCH 30.1 (27-33) pg MCHC 31.8 L (32-36) g/dl RDW 14.6 H (11.5-14.5) % Plt Count 242 (130-400) K/uL MPV 11.9 H (7.4-10.4) fl Neutrophils % 75.0 (47-80) % Band Neutrophils % 0.0 (0-5) % Eosinophils % Not Reportable Basophils % Not Reportable Lymphocytes 7.0 L (16-45) % Monocytes 17.0 H (0-9) % Basophils 0.0 (0-6) % Eosinophil Count 1.0 (0-6) % Sodium 139 (136-145) mmol/L Potassium 4.4 (3.4-4.5) mmol/L Chloride 95 L (98-107) mmol/L Carbon Dioxide 29.0 (22-29) mmol/L Anion Gap 15.0 (7-16) BUN 20 (8-23) mg/dL Creatinine 0.5 (0.5-0.9) mg/dL Estimated GFR > 60 mL/min Random Glucose 91 (74-109) mg/dL Calcium 9.4 (8.8-10.2) mg/dL Total Bilirubin 0.60 (0.2-1.0) mg/dL AST 51 H (10.0-35.0) U/L ALT 24 (<33) U/L Alkaline Phosphatase 92 (35-104) U/L Ammonia Cancelled Total Protein 7.8 (6.6-8.7) g/dL Albumin 4.2 (4.0-5.0) g/dL Globulin 3.6 (1.4-4.8) gm/dL Albumin/Globulin Ratio 1.2 (1.1-1.8) Urine Color Urine Appearance Urine pH (5.0-8.0) Ur Specific [place] (1.002-1.030) Urine Protein (NEGATIVE) Urine Glucose (UA) (NEGATIVE) Urine Ketones (NEGATIVE) Urine Blood (NEGATIVE) Urine Nitrite (NEGATIVE) Urine Bilirubin (NEGATIVE) Urine Urobilinogen (0.20 - 1.00) E.U./dL Ur Leukocyte Esterase (NEGATIVE) 11/12/17 11/12/17 Range/Units 10:28 10:45 WBC (4.2-12.2) K/uL RBC (3.80-5.40) M/uL Hgb (11.6-16.0) gm/dl Hct (35.0-47.0) % MCV (81-97) fl MCH (27-33) pg MCHC (32-36) g/dl RDW (11.5-14.5) % Plt Count (130-400) K/uL MPV (7.4-10.4) fl Neutrophils % (47-80) % Band Neutrophils % (0-5) % Eosinophils % Basophils % Lymphocytes (16-45) % Monocytes (0-9) % Basophils (0-6) % Eosinophil Count (0-6) % Sodium (136-145) mmol/L Potassium (3.4-4.5) mmol/L Chloride (98-107) mmol/L Carbon Dioxide (22-29) mmol/L Anion Gap (7-16) BUN (8-23) mg/dL Creatinine (0.5-0.9) mg/dL Estimated GFR mL/min Random Glucose (74-109) mg/dL Calcium (8.8-10.2) mg/dL Total Bilirubin (0.2-1.0) mg/dL AST (10.0-35.0) U/L ALT (<33) U/L Alkaline Phosphatase (35-104) U/L Ammonia Cancelled Total Protein (6.6-8.7) g/dL Albumin (4.0-5.0) g/dL Globulin (1.4-4.8) gm/dL Albumin/Globulin Ratio (1.1-1.8) Urine Color Yellow Urine Appearance Clear Urine pH 7.0 (5.0-8.0) Ur Specific [place] 1.010 (1.002-1.030) Urine Protein Negative (NEGATIVE) Urine Glucose (UA) Negative (NEGATIVE) Urine Ketones Negative (NEGATIVE) Urine Blood Negative (NEGATIVE) Urine Nitrite Negative (NEGATIVE) Urine Bilirubin Negative (NEGATIVE) Urine Urobilinogen 0.2 (0.20 - 1.00) E.U./dL Ur Leukocyte Esterase Negative (NEGATIVE) Disposition Disposition: Discharge Clinical Impression: Confusion Drug reaction Qualifiers: Encounter type: initial encounter Qualified Code(s): T88.7XXA - Unspecified adverse effect of drug or medicament, initial encounter Disposition: Home, Self-Care Condition: (1) Good Instructions: Altered Mental Status (ED), Adverse Drug Reaction (ED) Additional Instructions: follow up with family doctor. return sooner if worse. DO NOT DRIVE UNLESS CLEARED BY A DOCTOR Quality - Quality Measures Quality Measures: N/A - Blood Pressure Screening Does Patient Have Any of the Following: No Blood Pressure Classification: Hypertensive Reading Systolic Measurement: 171 Diastolic Measurement: 74 Screening for High Blood Pressure: < First Hypertensive BP, F/U Documented > [ G8950] First Hypertensive Follow-up Interventions: Follow-up with rescreen GT 1 day and LT 4 weeks.
--- NOTE | 2017-11-13 09:51 | CT SCAN REPORT ---
DATE: 11/12/2017 at 9:48 a.m. EXAM: HEAD CT WITHOUT CONTRAST. HISTORY: Confusion. Recent diagnosis of liver cancer. TECHNIQUE: Axial CT scan of the head performed without intravenous contrast. COMPARISON: Head CT dated 05/23/2016. FINDINGS: No definite acute intracranial hemorrhage identified. No focal mass effect or midline shift apparent. 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 No definite acute infarct or intracranial mass lesion is seen. Relatively small size of right maxillary sinus as before. No depressed calvarial fracture evident. IMPRESSION: 1. GENERALIZED ATROPHY WITH CHRONIC-APPEARING DEEP WHITE MATTER CHANGES. 2. NO ACUTE INTRACRANIAL HEMORRHAGE OR FOCAL MASS EFFECT EVIDENT. JOB NUMBER: [id number] MTDD
== END 2017-11-12 15:30 | disposition home or self-care (01) ==
LOC: ER 07:58
DX: R41.82 Altered mental status, unspecified (principal); T40.2X5A Adverse effect of other opioids, initial encounter; C22.9 Malignant neoplasm of liver, not specified as primary or secondary; I10 Essential (primary) hypertension; Z87.891 Personal history of nicotine dependence
CPT/HCPCS: 70450; 80053; 81003; 85027; 99284

== ENCOUNTER 2017-11-15 20:05 | Emergency (ER) | payer MEDICARE, BC ==
[2017-11-15] MEDS ORDERED: METHYLNALTREXONE BROMIDE (RELISTOR) 12MG/0.6ML SYRINGE SQ ONE (21:06)
--- NOTE | 2017-11-15 21:14 | Emergency Department Record ---
History of Present Illness - General Chief Complaint: General Stated Complaint: CONSTIPATED X5 DAYS Time Seen by Provider: 11/15/17 21:03 Source: Patient Mode of Arrival: Ambulatory Limitations: No limitations - History of Present Illness Initial Comments: 86 yo female presents to ED for evaluation of constipation following initialization of oral Dilaudid for chronic pain related to a liver mass. Patient reports that she has been attempting self dis-impaction at home without success. Patient denies abdominal pain symptoms, reports that she just feels full. Patient denies fevers, chills, nausea, or vomiting symptoms. MD Complaint: Other Onset/Timin -: Days(s) Radiation: None Severity: Moderate Quality: Cramping Consistency: Constant Improves With: Nothing Worsens With: Nothing Associated Symptoms: Denies other symptoms - Related Data Previous Rx's Medication Instructions Recorded Hydromorphone HCl [Dilaudid] 2 mg PO Q6H PRN 3 Days #12 tablet 11/11/17 Metoprolol Succinate [Toprol Xl] 12.5 mg PO DAILY tab.er.24h 11/11/17 Allergies Allergy/AdvReac Type Severity Reaction Status Date / Time acetaminophen [From Tylenol] Allergy HYPERSENSIT Verified 11/12/17 08:16 IVITY amoxicillin Allergy HIVES Verified 11/12/17 08:16 aspirin Allergy HYPERSENSIT Verified 11/12/17 08:16 IVITY hydrochlorothiazide Allergy RASH Verified 11/12/17 08:16 [From Dyazide] lidocaine Allergy DIFFICULTY Verified 11/12/17 08:16 SWALLOWING methylprednisolone Allergy BEHAVIORAL Verified 11/12/17 08:16 CHANGES naproxen [From Naprosyn] Allergy RASH Verified 11/12/17 08:16 oxaprozin [From Daypro] Allergy bleeding Verified 11/12/17 08:16 propoxyphene napsylate Allergy RASH Verified 11/12/17 08:16 [From Darvocet-N] triamterene [From Dyazide] Allergy RASH Verified 11/12/17 08:16 diclofenac sodium AdvReac RAPID Verified 11/12/17 08:16 [From Arthrotec] HEART RATE hydrocodone bitartrate AdvReac RAPID Verified 11/12/17 08:16 [From Vicodin] HEART RATE indomethacin [From Indocin] AdvReac ABDOMINAL Verified 11/12/17 08:16 PAIN indomethacin sodium AdvReac ABDOMINAL Verified 11/12/17 08:16 [From Indocin] PAIN meperidine HCl [From Demerol] AdvReac NAUSEA AND Verified 11/12/17 08:16 VOMITING metoprolol succinate AdvReac slow heart Verified 11/12/17 08:16 [From Toprol XL] rate misoprostol [From Arthrotec] AdvReac RAPID Verified 11/12/17 08:16 HEART RATE oxycodone AdvReac DIZZINESS Verified 11/12/17 08:16 verapamil HCl [From Calan] AdvReac slow heart Verified 11/12/17 08:16 rate Travel Screening - Travel/Exposure Within Last 30 Days Have you traveled within the last 30 days?: No - Travel Symptoms Symptom Screening: None Review of Systems Constitutional: Denies: Chills, Fever, Malaise, Night sweats Eyes: Denies: Eye discharge, Eye pain ENT: Denies: Congestion, Ear pain Respiratory: Denies: Cough, Dyspnea Cardiovascular: Denies: Chest pain, Dyspnea on exertion Endocrine: Denies: Fatigue, Heat or cold intolerance Gastrointestinal: Reports: Constipation. Denies: Abdominal pain, Nausea, Vomiting Genitourinary: Denies: Incontinence, Retention Musculoskeletal: Denies: Arthralgia, Back pain Skin: Denies: Bruising, Change in color Neurological: Denies: Abnormal gait, Confusion, Headache, Seizure Psychiatric: Denies: Anxiety Hematological/Lymphatic: Denies: Anemia, Blood Clots Past Medical History - SOCIAL HISTORY Smoking Status: Former smoker - RESPIRATORY Hx Respiratory Disorders: No - CARDIOVASCULAR Hx Cardio Disorders: Yes Hx Abnormal EKG: No Hx Cardiac Cath: No Hx Chest Pain: No Hx CHF: No Hx Deep Vein Thrombosis: No Hx Edema: No Hx Heart Attack: No Hx Hypertension: Yes Hx Hypotension: No Hx Irregular Heartbeat: No Hx Palpitations: No Hx Pacemaker/Defib: No Hx Vascular Disease: No - NEURO Hx Neuro Disorders: No - GI Hx GI Disorders: Yes Hx Abdominal Pain: No Hx Celiac Disease: No Hx Crohn's Disease: No Hx Diverticulitis: No Hx GI Bleed: No Hx Reflux: No Hx Hepatitis/Jaundice: No Hx Hiatal Hernia: No Hx Irritable Bowel: Yes Hx Liver Disease: No Hx Nausea/Vomiting: No Hx Obstructive Bowel: No Hx Pancreatitis: No Hx Rectal Bleeding: No Hx Ulcer: No Hx Wt Loss/Wt Gain: No Hx of Polyps: No Comment:: stomach issues - Hx Genitourinary Disorders: Yes Hx Bladder Problem: Yes (frequency/overactive bladder) Hx Dialysis: No Hx Kidney Stones: No Hx Renal Disease: No Hx UTI: No Comment:: bladder lift surgery, hysterectomy - ENDOCRINE Hx Endocrine Disorders: No Hx Diabetes: No Hx Thyroid Disease: No - MUSCULOSKELETAL Hx Musculoskeletal Disorders: Yes Hx Arthritis: No Hx Back Injury: No Hx Fibromyalgia: No Hx Gout: No Hx Musculoskeletal Disease: No Hx Osteoporosis: No Comment:: scoliosis - PSYCH Hx Psych Problems: No - HEMATOLOGY/ONCOLOGY Hx Hematology/Oncology Disorders: Yes Hx Anemia: No Hx Blood Disorders: No Hx Bruising: No Hx Cancer: Yes (skin, newly diagnosed liver CA) Hx Chemotherapy: No Hx Radiation Therapy: No Hx Clotting Problems: No Hx Sickle Cell Disease: No Hx Unexplained Bleeding: No Hx Blood Transfusions: No Hx Blood Transfusion Reaction: No Family Medical History Any Significant Family History?: Yes Hx Cancer: Brother/Sister Hx Heart Disease: Father Physical Exam - General General Appearance: Alert, Oriented x3, Cooperative, No acute distress Limitations: No limitations - Head Head exam: Atraumatic, Normocephalic, Normal inspection Head exam detail: negative: Abrasion, Contusion, Guillermo's sign, General tenderness, Hematoma, Laceration - Eye Eye exam: Normal appearance. negative: Conjunctival injection, Periorbital swelling, Periorbital tenderness, Scleral icterus - ENT Ear exam: negative: Auricular hematoma, Auricular trauma Nasal Exam: negative: Active bleeding, Discharge, Dried blood, Foreign body Mouth exam: negative: Drooling, Laceration, Muffled voice, Tongue elevation - Neck Neck exam: Normal inspection. negative: Meningismus, Tenderness - Respiratory Respiratory exam: Normal lung sounds bilaterally. negative: Rales, Respiratory distress, Rhonchi, Stridor - Cardiovascular Cardiovascular Exam: Regular rate, Normal rhythm, Normal heart sounds - GI/Abdominal GI/Abdominal exam: Soft, Other (Mild distention present, palpable stool in the ascending/transverse folon, no pain with palpation). negative: Rebound, Rigid, Tenderness - Rectal Rectal exam: Deferred - exam: Deferred - Extremities Extremities exam: Normal inspection. negative: Calf tenderness, Pedal edema, Tenderness - Back Back exam: Denies: CVA tenderness (R), CVA tenderness (L) - Neurological Neurological exam: Alert, Normal gait, Oriented X3 - Psychiatric Psychiatric exam: Normal affect, Normal mood - Skin Skin exam: Normal color. negative: Abrasion Type of lesion: negative: abrasion Course Vital Signs 11/15/17 11/15/17 20:57 21:01 Temperature 97.7 F 97.7 F Pulse Rate [ 74 Pulse Ox Probe] Respiratory 18 Rate Blood Pressure 144/75 [Left Arm] Pulse Ox 98 - Reevaluation(s) Reevaluation #1: 11/15/17 22:03 Patient was reassessed, reports that her abdominal cramping is now gone, denies the need to defecate at this time. I offered the patient a suppository, patient became angry stating "I want to leave now, I have a good lawyers and I'm going to call him". Patient appears stable for discharge at this time per her wishes. Disposition Disposition: Discharge Clinical Impression: Constipation Qualifiers: Constipation type: unspecified constipation type Qualified Code(s): K59.00 - Constipation, unspecified Disposition: Home, Self-Care Condition: (2) Stable Instructions: Constipation (ED) Additional Instructions: Return to ED if your symptoms worsen or if you have any concerns. Stool softener as needed. Follow-up with your family doctor in 1-3 days as directed. Forms: Patient Portal Access Time of Disposition: 22:07 Quality - Quality Measures Quality Measures: N/A - Blood Pressure Screening Does Patient Have Any of the Following: No Blood Pressure Classification: Hypertensive Reading Systolic Measurement: 144 Diastolic Measurement: 75 Screening for High Blood Pressure: < First Hypertensive BP, F/U Documented > [ [id number]] First Hypertensive Follow-up Interventions: Referral to alternative/primary care provider.
== END 2017-11-15 22:12 | disposition home or self-care (01) ==
LOC: ER 20:05
DX: K59.00 Constipation, unspecified (principal); C22.9 Malignant neoplasm of liver, not specified as primary or secondary; I10 Essential (primary) hypertension; Z87.891 Personal history of nicotine dependence
CPT/HCPCS: 99283 ×2; 96372; J2212

== ENCOUNTER 2017-11-24 04:21 | Observation (INO) | payer MEDICARE, BC ==
--- NOTE | 2017-11-24 04:43 | Emergency Department Record ---
History of Present Illness - General Chief complaint: Pain Stated complaint: CANCER PAIN Time Seen by Provider: 11/24/17 04:38 Source: Patient Mode of Arrival: Wheelchair Limitations: No limitations - History of Present Illness Initial comments: 87 yo female presents to ED for evaluation of her "cancer pain". Patient reports that she has not been taking her Dilaudid as prescribed, reports that she was "told that she has cancer and is going to ". Patient cannot give further details of what type of cancer she has or the origin of her cancer. MD Complaint: Other Onset/Timin -: Hour(s) History of Same: Yes Severity scale (1-10): 10 Consistency: Constant Improves with: Nothing Worsens with: Nothing Associated Symptoms: Denies other symptoms - Related Data Home Medications Medication Instructions Recorded Confirmed Last Taken Dexamethasone 4 mg PO DAILY 11/24/17 11/24/17 Unknown Tolterodine Tartrate [Detrol LA] 2 mg PO DAILY 11/24/17 11/24/17 Unknown Previous Rx's Medication Instructions Recorded Hydromorphone HCl [Dilaudid] 2 mg PO Q6H PRN 3 Days #12 tablet 11/11/17 Metoprolol Succinate [Toprol Xl] 12.5 mg PO DAILY tab.er.24h 11/11/17 Allergies Allergy/AdvReac Type Severity Reaction Status Date / Time acetaminophen [From Tylenol] Allergy HYPERSENSIT Verified 11/12/17 08:16 IVITY amoxicillin Allergy HIVES Verified 11/12/17 08:16 aspirin Allergy HYPERSENSIT Verified 11/12/17 08:16 IVITY hydrochlorothiazide Allergy RASH Verified 11/12/17 08:16 [From Dyazide] lidocaine Allergy DIFFICULTY Verified 11/12/17 08:16 SWALLOWING methylprednisolone Allergy BEHAVIORAL Verified 11/12/17 08:16 CHANGES naproxen [From Naprosyn] Allergy RASH Verified 11/12/17 08:16 oxaprozin [From Daypro] Allergy bleeding Verified 11/12/17 08:16 propoxyphene napsylate Allergy RASH Verified 11/12/17 08:16 [From Darvocet-N] triamterene [From Dyazide] Allergy RASH Verified 11/12/17 08:16 diclofenac sodium AdvReac RAPID Verified 11/12/17 08:16 [From Arthrotec] HEART RATE hydrocodone bitartrate AdvReac RAPID Verified 11/12/17 08:16 [From Vicodin] HEART RATE indomethacin [From Indocin] AdvReac ABDOMINAL Verified 11/12/17 08:16 PAIN indomethacin sodium AdvReac ABDOMINAL Verified 11/12/17 08:16 [From Indocin] PAIN meperidine HCl [From Demerol] AdvReac NAUSEA AND Verified 11/12/17 08:16 VOMITING metoprolol succinate AdvReac slow heart Verified 11/12/17 08:16 [From Toprol XL] rate misoprostol [From Arthrotec] AdvReac RAPID Verified 11/12/17 08:16 HEART RATE oxycodone AdvReac DIZZINESS Verified 11/12/17 08:16 verapamil HCl [From Calan] AdvReac slow heart Verified 11/12/17 08:16 rate Travel Screening - Travel/Exposure Within Last 30 Days Have you traveled within the last 30 days?: No - Travel/Exposure Within Last Year Have you traveled outside the [place] in the last year?: No - Additonal Travel Details Have you been exposed to anyone with a communicable illness?: No - Travel Symptoms Symptom Screening: None Review of Systems Constitutional: Denies: Chills, Fever, Malaise, Night sweats Eyes: Denies: Eye discharge, Eye pain ENT: Denies: Congestion, Ear pain, Epistaxis Respiratory: Denies: Cough, Dyspnea Cardiovascular: Denies: Chest pain, Dyspnea on exertion Endocrine: Denies: Fatigue, Heat or cold intolerance Gastrointestinal: Denies: Abdominal pain, Nausea, Vomiting Genitourinary: Denies: Incontinence, Retention Musculoskeletal: Denies: Arthralgia, Back pain, Gout, Joint swelling Skin: Denies: Bruising, Change in color Neurological: Denies: Abnormal gait, Confusion, Headache, Seizure Psychiatric: Denies: Anxiety Hematological/Lymphatic: Denies: Anemia, Blood Clots Past Medical History - SOCIAL HISTORY Smoking Status: Former smoker Alcohol Use: None Drug Use: None - RESPIRATORY Hx Respiratory Disorders: No - CARDIOVASCULAR Hx Cardio Disorders: Yes Hx Abnormal EKG: No Hx Cardiac Cath: No Hx Chest Pain: No Hx CHF: No Hx Deep Vein Thrombosis: No Hx Edema: No Hx Heart Attack: No Hx Hypertension: Yes Hx Hypotension: No Hx Irregular Heartbeat: No Hx Palpitations: No Hx Pacemaker/Defib: No Hx Vascular Disease: No - NEURO Hx Neuro Disorders: No - GI Hx GI Disorders: Yes Hx Abdominal Pain: No Hx Celiac Disease: No Hx Crohn's Disease: No Hx Diverticulitis: No Hx GI Bleed: No Hx Reflux: No Hx Hepatitis/Jaundice: No Hx Hiatal Hernia: No Hx Irritable Bowel: Yes Hx Liver Disease: No Hx Nausea/Vomiting: No Hx Obstructive Bowel: No Hx Pancreatitis: No Hx Rectal Bleeding: No Hx Ulcer: No Hx Wt Loss/Wt Gain: No Hx of Polyps: No Comment:: stomach issues - Hx Genitourinary Disorders: Yes Hx Bladder Problem: Yes (frequency/overactive bladder) Hx Dialysis: No Hx Kidney Stones: No Hx Renal Disease: No Hx UTI: No Comment:: bladder lift surgery, hysterectomy - ENDOCRINE Hx Endocrine Disorders: No Hx Diabetes: No Hx Thyroid Disease: No - MUSCULOSKELETAL Hx Musculoskeletal Disorders: Yes Hx Arthritis: No Hx Back Injury: No Hx Fibromyalgia: No Hx Gout: No Hx Musculoskeletal Disease: No Hx Osteoporosis: No Comment:: scoliosis - PSYCH Hx Psych Problems: No - HEMATOLOGY/ONCOLOGY Hx Hematology/Oncology Disorders: Yes Hx Anemia: No Hx Blood Disorders: No Hx Bruising: No Hx Cancer: Yes (skin, newly diagnosed liver CA) Hx Chemotherapy: No Hx Radiation Therapy: No Hx Clotting Problems: No Hx Sickle Cell Disease: No Hx Unexplained Bleeding: No Hx Blood Transfusions: No Hx Blood Transfusion Reaction: No Family Medical History Any Significant Family History?: Yes Hx Cancer: Brother/Sister Hx Heart Disease: Father Physical Exam - General General Appearance: Alert, Oriented x3, Cooperative, No acute distress, Other ( very circular conversation on examination) Limitations: No limitations - Head Head exam: Atraumatic, Normocephalic, Normal inspection Head exam detail: negative: Abrasion, Contusion, Guillermo's sign, General tenderness, Hematoma, Laceration - Eye Eye exam: Normal appearance. negative: Conjunctival injection, Periorbital swelling, Periorbital tenderness, Scleral icterus - ENT Ear exam: negative: Auricular hematoma, Auricular trauma Nasal Exam: negative: Active bleeding, Discharge, Dried blood, Foreign body Mouth exam: negative: Drooling, Laceration, Muffled voice, Tongue elevation - Neck Neck exam: Normal inspection. negative: Meningismus, Tenderness - Respiratory Respiratory exam: Normal lung sounds bilaterally. negative: Rales, Respiratory distress, Rhonchi, Stridor - Cardiovascular Cardiovascular Exam: Regular rate, Normal rhythm, Normal heart sounds - GI/Abdominal GI/Abdominal exam: Soft. negative: Rebound, Rigid, Tenderness - Rectal Rectal exam: Deferred - exam: Deferred - Extremities Extremities exam: Normal inspection. negative: Calf tenderness, Pedal edema, Tenderness - Back Back exam: Denies: CVA tenderness (R), CVA tenderness (L) - Neurological Neurological exam: Alert, Normal gait, Oriented X3 - Psychiatric Psychiatric exam: Normal affect, Normal mood - Skin Skin exam: Normal color. negative: Abrasion Type of lesion: negative: abrasion Course Vital Signs 11/24/17 04:23 Temperature 98.6 F Pulse Rate 66 Respiratory 20 Rate Blood Pressure 186/93 Pulse Ox 97 - Reevaluation(s) Reevaluation #1: 11/24/17 04:45 Attempted to call the patient's son to let him know that the patient is currently in the emergency department, first number was disconnected, the second number was to a person not with the patient's name. Patient has no clinical signs of pain on examination, is well appearing, but does exhibit signs of dementia. Will order basic labs and UA and plan to admit for possible placement. CT Brain was reviewed 11/15/17: No acute process Chronic appearing changes Reevaluation #2: 11/24/17 05:42 Labs reviewed: WBC 16.7 (at baseline for the patient) AST 64 ALT 40 Alk phos 111 UA appears unremarkable for an acute process. Will admit for social work consultation and possible placement. Medical Decision Making - Lab Data Result diagrams: 11/24/17 05:15 11/24/17 05:15 Disposition Disposition: Admit Clinical Impression: Dementia Qualifiers: Dementia type: unspecified type Dementia behavioral disturbance: without behavioral disturbance Qualified Code(s): F03.90 - Unspecified dementia without behavioral disturbance Disposition: Still a Patient at [facility] Decision to Admit: Admit from ER Decision to Admit Date: 11/24/17 Decision to Admit Time: :44 Condition: (2) Stable Forms: Patient Portal Access Time of Disposition: :44 Quality - Quality Measures Quality Measures: N/A - Blood Pressure Screening Does Patient Have Any of the Following: Active Dx of HTN Blood Pressure Classification: Hypertensive Reading Systolic Measurement: 186 Diastolic Measurement: 93 Screening for High Blood Pressure: Patient Exclusion, Hx of HTN [G9744]
[2017-11-24 05:18] LABS: HEMATOCRIT 40.3 % (35.0-47.0); HEMOGLOBIN 13.3 gm/dl (11.6-16.0); MEAN CELL VOLUME 92.4 fl (81-97); MEAN CORPUSCULAR HEMOGLOBIN 30.5 pg (27-33); MEAN PLATELET VOLUME 11.5 fl (7.4-10.4); PLATELET COUNT 250 K/uL (130-400); RED BLOOD COUNT 4.36 M/uL (3.80-5.40); RED CELL DISTRIBUTION WIDTH 14.8 % (11.5-14.5); WHITE BLOOD COUNT W/O DIFF 16.7 K/uL (4.2-12.2)
[2017-11-24 05:27] LABS: URINE APPEARANCE CLEAR; URINE BILIRUBIN NEGATIVE (NEGATIVE); URINE BLOOD NEGATIVE (NEGATIVE); URINE COLOR YELLOW; URINE GLUCOSE (UA) NEGATIVE (NEGATIVE); URINE KETONE NEGATIVE (NEGATIVE); URINE LEUKOCYTE ESTERASE NEGATIVE (NEGATIVE); URINE NITRITE NEGATIVE (NEGATIVE); URINE UROBILINOGEN 0.2 E.U./dL (0.20 - 1.00)
[2017-11-24 05:32] LABS: BLOOD UREA NITROGEN 16 mg/dL (8-23); CREATININE 0.5 mg/dL (0.5-0.9); EST GLOMERULAR FILTRATION RATE > 60 mL/min; TOTAL PROTEIN 7.2 g/dL (6.6-8.7)
[2017-11-24 05:34] LABS: GLUCOSE,RANDOM 110 mg/dL (74-109)
[2017-11-24 05:37] LABS: ALB/GLOB RATIO 1.1 (1.1-1.8); ALBUMIN 3.7 g/dL (4.0-5.0); ALKALINE PHOSPHATASE 111 U/L (35-104); ALT/SGPT 40 U/L (<33); AST/SGOT 64 U/L (10.0-35.0)
--- NOTE | 2017-11-24 09:49 | History & Physical ---
History of Present Illness - Date of Service Date of Service for History & Physical: 11/24/17 - History of Present Illness Admitting Diagnosis: Dementia. Possible placement History of Present Illness: 87 yo female presents to ED for abdominal pain. Patient has been diagnosed with liver cancer earlier this year and was set-up with in home hospice. Patient reports that she has not been taking her Dilaudid which was prescribed for abdominal/liver pain. Patient also reports being unable to sleep tonight due to the pain. She drove herself to the ER. While in the ED, VS were normal, UA was negative, CBC was unchanged from previous visit. Patient was seen on 11/15 for confusion and had a negative head CT at that time. Patient reports taking Dilaudid prior to that visit on 11/15 and attributes the confusion to the medication. Patient also reports having trouble with constipation since being started on the Dilaudid, for which she has seen Dr. Kasper. Patient was recently admitted in November of 2017 for acute abdominal pain. Extensive case management work was completed at that time to have patient set- up with in-home hospice. She currently has a social staff worker and plant control aide available to her through [place]. Patient cannot currently afford to be placed in a hospice home. There is also no current [facility] paperwork completed for the patient. 11/24/17: Patient is alert and oriented x 4 today. Appropriately describes medical condition and reason for admission today. Patient denies abdominal pain at this time. Reports hospice care continues to come to the house and assist her. Patient denies wanting her son, Nic, updated on her current admission at this time. Travel Screening - Travel/Exposure Within Last 30 Days Have you traveled within the last 30 days?: No - Travel/Exposure Within Last Year Have you traveled outside the [place] in the last year?: No - Additonal Travel Details Have you been exposed to anyone with a communicable illness?: No - Travel Symptoms Symptom Screening: None Review of Systems Constitutional: Denies: Chills, Fever, Malaise, Night sweats Eyes: Denies: Eye discharge, Eye pain ENT: Denies: Congestion, Ear pain, Epistaxis Respiratory: Denies: Cough, Dyspnea Cardiovascular: Denies: Chest pain, Dyspnea on exertion Endocrine: Denies: Fatigue, Heat or cold intolerance Gastrointestinal: Reports: Abdominal pain, Vomiting. Denies: Nausea Genitourinary: Denies: Incontinence, Retention Musculoskeletal: Denies: Arthralgia, Back pain, Gout, Joint swelling Skin: Denies: Bruising, Change in color Neurological: Denies: Abnormal gait, Confusion, Headache, Seizure Psychiatric: Denies: Anxiety Hematological/Lymphatic: Denies: Anemia, Blood Clots Past Medical History - SOCIAL HISTORY Smoking Status: Former smoker Alcohol Use: None Drug Use: None - RESPIRATORY Hx Respiratory Disorders: No - CARDIOVASCULAR Hx Cardio Disorders: Yes Hx Abnormal EKG: No Hx Cardiac Cath: No Hx Chest Pain: No Hx CHF: No Hx Deep Vein Thrombosis: No Hx Edema: No Hx Heart Attack: No Hx Hypertension: Yes Hx Hypotension: No Hx Irregular Heartbeat: No Hx Palpitations: No Hx Pacemaker/Defib: No Hx Vascular Disease: No - NEURO Hx Neuro Disorders: No - GI Hx GI Disorders: Yes Hx Abdominal Pain: No Hx Celiac Disease: No Hx Crohn's Disease: No Hx Diverticulitis: No Hx GI Bleed: No Hx Reflux: No Hx Hepatitis/Jaundice: No Hx Hiatal Hernia: No Hx Irritable Bowel: Yes Hx Liver Disease: No Hx Nausea/Vomiting: No Hx Obstructive Bowel: No Hx Pancreatitis: No Hx Rectal Bleeding: No Hx Ulcer: No Hx Wt Loss/Wt Gain: No Hx of Polyps: No Comment:: stomach issues - Hx Genitourinary Disorders: Yes Hx Bladder Problem: Yes (frequency/overactive bladder) Hx Dialysis: No Hx Kidney Stones: No Hx Renal Disease: No Hx UTI: No Comment:: bladder lift surgery, hysterectomy - ENDOCRINE Hx Endocrine Disorders: No Hx Diabetes: No Hx Thyroid Disease: No - MUSCULOSKELETAL Hx Musculoskeletal Disorders: Yes Hx Arthritis: No Hx Back Injury: No Hx Fibromyalgia: No Hx Gout: No Hx Musculoskeletal Disease: No Hx Osteoporosis: No Comment:: scoliosis - PSYCH Hx Psych Problems: No - HEMATOLOGY/ONCOLOGY Hx Hematology/Oncology Disorders: Yes Hx Anemia: No Hx Blood Disorders: No Hx Bruising: No Hx Cancer: Yes (skin, newly diagnosed liver CA) Hx Chemotherapy: No Hx Radiation Therapy: No Hx Clotting Problems: No Hx Sickle Cell Disease: No Hx Unexplained Bleeding: No Hx Blood Transfusions: No Hx Blood Transfusion Reaction: No Family Medical History Any Significant Family History?: Yes Hx Cancer: Brother/Sister Hx Heart Disease: Father H&P Meds/Allergies - Allergies Allergies: Allergies Allergy/AdvReac Type Severity Reaction Status Date / Time acetaminophen [From Tylenol] Allergy HYPERSENSIT Verified 11/12/17 08:16 IVITY amoxicillin Allergy HIVES Verified 11/12/17 08:16 aspirin Allergy HYPERSENSIT Verified 11/12/17 08:16 IVITY hydrochlorothiazide Allergy RASH Verified 11/12/17 08:16 [From Dyazide] lidocaine Allergy DIFFICULTY Verified 11/12/17 08:16 SWALLOWING methylprednisolone Allergy BEHAVIORAL Verified 11/12/17 08:16 CHANGES naproxen [From Naprosyn] Allergy RASH Verified 11/12/17 08:16 oxaprozin [From Daypro] Allergy bleeding Verified 11/12/17 08:16 propoxyphene napsylate Allergy RASH Verified 11/12/17 08:16 [From Darvocet-N] triamterene [From Dyazide] Allergy RASH Verified 11/12/17 08:16 diclofenac sodium AdvReac RAPID Verified 11/12/17 08:16 [From Arthrotec] HEART RATE hydrocodone bitartrate AdvReac RAPID Verified 11/12/17 08:16 [From Vicodin] HEART RATE indomethacin [From Indocin] AdvReac ABDOMINAL Verified 11/12/17 08:16 PAIN indomethacin sodium AdvReac ABDOMINAL Verified 11/12/17 08:16 [From Indocin] PAIN meperidine HCl [From Demerol] AdvReac NAUSEA AND Verified 11/12/17 08:16 VOMITING metoprolol succinate AdvReac slow heart Verified 11/12/17 08:16 [From Toprol XL] rate misoprostol [From Arthrotec] AdvReac RAPID Verified 11/12/17 08:16 HEART RATE oxycodone AdvReac DIZZINESS Verified 11/12/17 08:16 verapamil HCl [From Calan] AdvReac slow heart Verified 11/12/17 08:16 rate - Home Medications Home Medications Medication Instructions Recorded Confirmed Last Taken Dexamethasone 4 mg PO DAILY 11/24/17 11/24/17 Unknown Tolterodine Tartrate [Detrol LA] 2 mg PO DAILY 11/24/17 11/24/17 Unknown Previous Rx's Medication Instructions Recorded Hydromorphone HCl [Dilaudid] 2 mg PO Q6H PRN 3 Days #12 tablet 11/11/17 Metoprolol Succinate [Toprol Xl] 12.5 mg PO DAILY tab.er.24h 11/11/17 - Active Medications Active Medications: Current Medications Metoprolol Succinate (Toprol Xl) 12.5 mg PO DAILY [facility] Non-Formulary Medication (Tolterodine Tartrate [Detrol La]) 2 mg PO DAILY [facility] Physical Exam - Vital Signs Vital Signs: Vital Signs - Last 24 Hrs Temp Pulse Pulse Resp BP BP BP 11/24/17 06:26 16 11/24/17 06:15 97.5 F L 64 18 161/76 11/24/17 06:03 57 L 20 158/75 11/24/17 04:23 98.6 F 66 20 186/93 Pulse Ox 11/24/17 06:26 11/24/17 06:15 97 11/24/17 06:03 97 11/24/17 04:23 97 - General General Appearance: Alert, Oriented x3, Cooperative, No acute distress, Other ( very circular conversation on examination) Limitations: No limitations - Head Head exam: Atraumatic, Normocephalic, Normal inspection Head exam detail: negative: Abrasion, Contusion, Guillermo's sign, General tenderness, Hematoma, Laceration - Eye Eye exam: Normal appearance. negative: Conjunctival injection, Periorbital swelling, Periorbital tenderness, Scleral icterus - ENT Ear exam: negative: Auricular hematoma, Auricular trauma Nasal Exam: negative: Active bleeding, Discharge, Dried blood, Foreign body Mouth exam: Normal external inspection. negative: Drooling, Laceration, Muffled voice, Tongue elevation - Neck Neck exam: Normal inspection. negative: Meningismus, Tenderness - Respiratory Respiratory exam: Normal lung sounds bilaterally. negative: Rales, Respiratory distress, Rhonchi, Stridor - Cardiovascular Cardiovascular Exam: Regular rate, Normal rhythm, Normal heart sounds Peripheral Pulses: 2+: Radial (R), Radial (L), Dorsalis Pedis (R), Dorsalis Pedis (L) - GI/Abdominal GI/Abdominal exam: Soft, Normal bowel sounds, Tenderness (RUQ and LUQ). negative: Rebound, Rigid - Rectal Rectal exam: Deferred - exam: Deferred - Extremities Extremities exam: Normal inspection. negative: Calf tenderness, Pedal edema, Tenderness - Back Back exam: Denies: CVA tenderness (R), CVA tenderness (L) - Neurological Neurological exam: Alert, Oriented X3 - Psychiatric Psychiatric exam: Normal affect, Normal mood - Skin Skin exam: Normal color. negative: Abrasion Type of lesion: negative: abrasion Results - Labs Result Diagrams: 11/24/17 05:15 11/24/17 05:15 Labs Last 24 Hours: Laboratory Results - last 24 hr 11/24/17 11/24/17 11/24/17 05:15 05:15 05:28 WBC 16.7 H RBC 4.36 Hgb 13.3 Hct 40.3 MCV 92.4 MCH 30.5 MCHC 33.0 RDW 14.8 H Plt Count 250 MPV 11.5 H Neutrophils % 69.0 Band Neutrophils % 0.0 Eosinophils % Not Reportable Basophils % Not Reportable Lymphocytes 15.0 L Monocytes 15.0 H Basophils 0.0 Eosinophil Count 1.0 Sodium 140 Potassium 4.6 H Chloride 99 Carbon Dioxide 22.0 Anion Gap 19.0 H BUN 16 Creatinine 0.5 Estimated GFR > 60 Random Glucose 110 H Calcium 9.4 Total Bilirubin 0.60 AST 64 H ALT 40 H Alkaline Phosphatase 111 H Total Protein 7.2 Albumin 3.7 L Globulin 3.5 Albumin/Globulin Ratio 1.1 Urine Color Yellow Urine Appearance Clear Urine pH 6.5 Ur Specific [place] 1.025 Urine Protein 30 mg/dl H Urine Glucose (UA) Negative Urine Ketones Negative Urine Blood Negative Urine Nitrite Negative Urine Bilirubin Negative Urine Urobilinogen 0.2 Ur Leukocyte Esterase Negative VTE H&P Assessment - Risk for VTE Risk for VTE: Yes Risk Level: High Risk Assessment Date: 11/24/17 Risk Assessment Time: 10:54 VTE Orders Placed or Will Be Placed: Yes Plan - Inpatient Certification Inpatient Certification: Admit to inpatient care: Based on my medical assessment, after consideration of patient's risk factors (age, co-morbidities and patient presenting symptoms and acuity), I expect that this patient will remain in the hospital greater than or equal to two midnights and that the services needed warrant inpatient care because: Patient Risk Factors: [] Estimated length of stay: [] The patient may reasonably be expected to be discharged or transferred to a hospital within 96 hours after admission to [facility]. Services needed: [] Post hospital care (if known): [] I certify that my determination is in accordance with my understanding of Medicare requirements for reasonable and necessary inpatient services. - Detailed Diagnosis and Plan (1) Liver mass Current Visit: No Status: Acute Base Code: R16.0 - HEPATOMEGALY, NOT ELSEWHERE CLASSIFIED Comment: 11/24/17: CTA 07/07/17 showed large liver mass in the left lobe which could be related to large hemangioma vs malignancy. There was also a small left adrenal mass which could be incidentaloma vs metasis. - MRI abdomen 07/12/17 further describing this mass with concern for malignancy. - Consult with Dr. Jimenez 10/11/17 - CT abdomen/pelvis w/o contrast 11/10/17: slight increase in liver mass size since previous imaging. - Patient currently under in-home hospice care for comfort care and pain management (2) Acute abdominal pain Current Visit: No Status: Acute Base Code: R10.9 - UNSPECIFIED ABDOMINAL PAIN Comment: 11/24/17: Patient presented to ED last night with complaints of RUQ and LUQ abdominal pain. Patient has Dilaudid 2mg PO at home, but denies taking the medication yesterday for the pain. -11/10/17 CT abdomen - mass of the left lobe of the liver with other massess, likely malignant. - Will switch patient from Dilaudid to Ultram 50mg PO TID prn due to patient complaints of confusion after taking Dilaudid - [facility] called and updated on medication change (3) DVT prophylaxis Current Visit: No Status: Acute Base Code: [id number] - Comment: 11/24/17: high risk w/ immobility and cancer causing hypercoagaubility. - Will place lovenox order if patient is unable to discharge today (4) Full code status Current Visit: No Status: Acute Base Code: Z78.9 - OTHER SPECIFIED HEALTH STATUS Comment: 11/24/17 - Discussed code status with patient. She wishes to receive chest compressions and mechanical ventilation while in the hospital.
[2017-11-24] MEDS ORDERED: TOLTERODINE TARTRATE 2 MG PO SCH (10:00)
[2017-11-24] MEDS ORDERED: METOPROLOL SUCC 25 MG TAB.ER PO SCH (10:00)
--- NOTE | 2017-11-24 11:45 | Discharge Summary ---
Providers Discharge Summary Date: 11/24/17 Date of admission: 11/24/17 06:08 Expected Date of Discharge: 11/24/17 Attending physician: ANNA PERKINS Consults: Consult Orders 11/24/17 06:26 Consult - Case Management Now Comment: Reason For Exam: Dementia, possible placment Physical Exam - Vital Signs Vital Signs: Vital Signs - Last 24 Hrs Temp Pulse Pulse Resp BP BP BP 11/24/17 09:00 64 16 11/24/17 06:26 16 11/24/17 06:15 97.5 F L 64 18 161/76 11/24/17 06:03 57 L 20 158/75 11/24/17 04:23 98.6 F 66 20 186/93 Pulse Ox 11/24/17 09:00 11/24/17 06:26 11/24/17 06:15 97 11/24/17 06:03 97 11/24/17 04:23 97 - General General Appearance: Alert, Oriented x3, Cooperative, No acute distress, Other ( very circular conversation on examination) Limitations: No limitations - Head Head exam: Atraumatic, Normocephalic, Normal inspection Head exam detail: negative: Abrasion, Contusion, Guillermo's sign, General tenderness, Hematoma, Laceration - Eye Eye exam: Normal appearance. negative: Conjunctival injection, Periorbital swelling, Periorbital tenderness, Scleral icterus - ENT Ear exam: negative: Auricular hematoma, Auricular trauma Nasal Exam: negative: Active bleeding, Discharge, Dried blood, Foreign body Mouth exam: Normal external inspection. negative: Drooling, Laceration, Muffled voice, Tongue elevation - Neck Neck exam: Normal inspection. negative: Meningismus, Tenderness - Respiratory Respiratory exam: Normal lung sounds bilaterally. negative: Rales, Respiratory distress, Rhonchi, Stridor - Cardiovascular Cardiovascular Exam: Regular rate, Normal rhythm, Normal heart sounds Peripheral Pulses: 2+: Radial (R), Radial (L), Dorsalis Pedis (R), Dorsalis Pedis (L) - GI/Abdominal GI/Abdominal exam: Soft, Normal bowel sounds, Tenderness (RUQ and LUQ). negative: Rebound, Rigid - Rectal Rectal exam: Deferred - exam: Deferred - Extremities Extremities exam: Normal inspection. negative: Calf tenderness, Pedal edema, Tenderness - Back Back exam: Denies: CVA tenderness (R), CVA tenderness (L) - Neurological Neurological exam: Alert, Oriented X3 - Psychiatric Psychiatric exam: Normal affect, Normal mood - Skin Skin exam: Normal color. negative: Abrasion Type of lesion: negative: abrasion Hospitalization - Hospitalization Admission Diagnosis: Dementia. Possible placement - Problem List/Discharge Diagnosis (1) Liver mass Current Visit: No Status: Acute Base Code: R16.0 - HEPATOMEGALY, NOT ELSEWHERE CLASSIFIED Comment: 11/24/17: CTA 07/07/17 showed large liver mass in the left lobe which could be related to large hemangioma vs malignancy. There was also a small left adrenal mass which could be incidentaloma vs metasis. - MRI abdomen 07/12/17 further describing this mass with concern for malignancy. - Consult with Dr. Jimenez 10/11/17 - CT abdomen/pelvis w/o contrast 11/10/17: slight increase in liver mass size since previous imaging. - Patient currently under in-home hospice care for comfort care and pain management (2) Acute abdominal pain Current Visit: No Status: Acute Base Code: R10.9 - UNSPECIFIED ABDOMINAL PAIN Comment: 11/24/17: Patient presented to ED last night with complaints of RUQ and LUQ abdominal pain. Patient has Dilaudid 2mg PO at home, but denies taking the medication yesterday for the pain. -11/10/17 CT abdomen - mass of the left lobe of the liver with other massess, likely malignant. - Will switch patient from Dilaudid to Ultram 50mg PO TID prn due to patient complaints of confusion after taking Dilaudid - [facility] called and updated on medication change (3) DVT prophylaxis Current Visit: No Status: Acute Base Code: [id number] - Comment: 11/24/17: high risk w/ immobility and cancer causing hypercoagaubility. - Will place lovenox order if patient is unable to discharge today (4) Full code status Current Visit: No Status: Acute Base Code: Z78.9 - OTHER SPECIFIED HEALTH STATUS Comment: 11/24/17 - Discussed code status with patient. She wishes to receive chest compressions and mechanical ventilation while in the hospital. - Hospitalization Course Disposition: Hospice care; pt to live @home Hospital Course: 87 yo female presents to ED for abdominal pain. Patient has been diagnosed with liver cancer earlier this year and was set-up with in home hospice. Patient reports that she has not been taking her Dilaudid which was prescribed for abdominal/liver pain. Patient also reports being unable to sleep tonight due to the pain. She drove herself to the ER. While in the ED, VS were normal, UA was negative, CBC was unchanged from previous visit. Patient was seen on 11/15 for confusion and had a negative head CT at that time. Patient reports taking Dilaudid prior to that visit on 11/15 and attributes the confusion to the medication. Patient also reports having trouble with constipation since being started on the Dilaudid, for which she has seen Dr. Kasper. Patient was recently admitted in November of 2017 for acute abdominal pain. Extensive case management work was completed at that time to have patient set- up with in-home hospice. She currently has a bilingual social worker and clerical aide available to her through [place]. Patient cannot currently afford to be placed in a hospice home. There is also no current DPOA paperwork completed for the patient. 11/24/17: Patient is alert and oriented x 4 today. Appropriately describes medical condition and reason for admission today. Patient denies abdominal pain at this time. Reports hospice care continues to come to the house and assist her. Patient denies wanting her son, Valente, updated on her current admission at this time. Patient has tolerated eating lunch with no nausea, vomiting, or abdominal pain. Patient has required no pain medications during her admission. Will change pain medication to Ultram 50mg PO TID prn pain and discontinue Dilaudid to try to decrease patient confusion after taking pain medication. Will ensure patient has all numbers available to her for hospice and bilingual social worker, and encourage her to contact them before coming to the ED. Abnormal Labs: Abnormal Lab Results 11/24/17 11/24/17 11/24/17 Range/Units 05:15 05:15 05:28 WBC 16.7 H (4.2-12.2) K/uL RDW 14.8 H (11.5-14.5) % MPV 11.5 H (7.4-10.4) fl Lymphocytes 15.0 L (16-45) % Monocytes 15.0 H (0-9) % Potassium 4.6 H (3.4-4.5) mmol/L Anion Gap 19.0 H (7-16) Random Glucose 110 H (74-109) mg/dL AST 64 H (10.0-35.0) U/L ALT 40 H (<33) U/L Alkaline Phosphatase 111 H (35-104) U/L Albumin 3.7 L (4.0-5.0) g/dL Urine Protein 30 mg/dl H (NEGATIVE) Condition at Discharge: (2) Stable VTE Discharge VTE Reason For No Overlap Therapy: Not Indicated Discharge Medications - Discharge Medications Prescriptions: Tramadol HCl [Ultram] 50 mg PO Q8H PRN #30 tab PRN Reason: Abdominal Pain Home Medications: Ambulatory Orders Metoprolol Succinate [Toprol Xl] 12.5 mg PO DAILY tab.er.24h 11/11/17 [Last Taken 1 Day Ago ~11/11/17] Dexamethasone 4 mg PO DAILY 11/24/17 [Last Taken Unknown] Tolterodine Tartrate [Detrol LA] 2 mg PO DAILY 11/24/17 [Last Taken Unknown] Tramadol HCl [Ultram] 50 mg PO Q8H PRN #30 tab 11/24/17 [Last Taken Unknown] Discharge Plan - Discharge Instructions Activity at Discharge: Increase Activity as Tolerated Diet at Discharge: Regular Diet Additional Instructions: STOP taking Dilaudid, and start taking Ultram as needed for pain Call the [employer] contact number at any time if you have questions regarding : pain, medications, or questioning if you should go to the ER Follow-up with your PCP within the next month Quality Measures - Quality Measures Quality Measures: Advance Directives, Documentation of Current Medications in Medical Record, Elder Maltreatment Screen and Follow-Up Plan, Screening for High Blood Pressure and F/U Documented - Current Medications Quality Measure: Measure #130: Documentation of Current Medications Documentation of Current Medications: <Current Medications Documented/Reviewed> [G8427] - Blood Pressure Screening Quality Measure: Screening for High Blood Pressure and Follow-Up Documented Does Patient Have Any of the Following: Active Dx of HTN Blood Pressure Classification: Hypertensive Reading Systolic Measurement: 186 Diastolic Measurement: 93 Screening for High Blood Pressure: Patient Exclusion, Hx of HTN [G9744] - Advance Directives Quality Measure: Measure #47: Care Plan Advance Directives Established: No Advance Directives Information Provided To Patient: Declined Advance Directives on File: No Living Will: No Power of Servicer: Yes Power of Servicer Name: valente kelsey, eleazar Advance Care Planning: <Care Plan/Decision Maker Not Decided; Discussed & Documented> [[id number]] - Elder Abuse Suspicion Index Screening: Elder Abuse Suspicion Index Screening Rely on people for bathing, dressing, shopping, banking, etc: No Prevented from getting food, clothes, medication, etc: No Made to feel shamed or threatened by someone: No Forced to sign papers or use money against will: No Feel afraid, touched in ways not wanted or hurt physically: No Poor eye contact, withdrawn, malnourished, cuts or bruises: No Screening Result: Negative result EASI Reference Information: Chema BECERRA, Bridget C, Piero D, Misa Valdovinos.Development and validation of a tool to assist physicians identification of elder abuse: The Elder Abuse Suspicion Index (EASI ). Journal of Elder Abuse and Neglect, 2008; 20 (3): 276-300. - Elder Maltreatment Screen Quality Measures: Elder Maltreatment Screen and Follow-Up Plan Elder Maltreatment Screen: <Negative, No Follow-Up Plan Required> [G6995]
== END 2017-11-24 15:20 | disposition home health service (06) ==
LOC: ER 04:21 → MEDSURG 06:08 → INTOOBSV 06:08
PROVIDERS: ADMIT Internal Medicine; ATTEND Internal Medicine
DX: F03.90 Unspecified dementia, unspecified severity, without behavioral disturbance, psychotic disturbance, mood disturbance, and anxiety (principal); C22.9 Malignant neoplasm of liver, not specified as primary or secondary; I10 Essential (primary) hypertension; Z85.828 Personal history of other malignant neoplasm of skin; Z87.891 Personal history of nicotine dependence
CPT/HCPCS: 80053; 81003; 85027; 99220; 99285

== ENCOUNTER 2018-03-24 16:32 | Emergency (ER) | payer MEDICARE, BC ==
--- NOTE | 2018-03-24 16:48 | Emergency Department Record ---
History of Present Illness - General Chief Complaint: Wound, check Stated Complaint: NEED BANDAGES CHANGED Source: Patient Mode of arrival: Ambulatory Limitations: No limitations - History of Present Illness Initial Comments: The patient states she tripped and fell at home in the garage and had trouble getting up. She was in the garage and crawled inside and in the process did get her leg bandages dirty. She then called EMS to get help getting up but was brought to the ER. Presently the patient denies any pain or discomfort and is in Hospice due to Liver CA. She also denies hitting her head and denies any neck , back, hip, or shoulder pain. MD Complaint: Wound re-check Onset/Timin -: Hour(s) - Related Data Previous Rx's Medication Instructions Recorded Metoprolol Succinate [Toprol Xl] 12.5 mg PO DAILY tab.er.24h 11/11/17 Tramadol HCl [Ultram] 50 mg PO Q8H PRN #30 tab 11/24/17 Allergies Allergy/AdvReac Type Severity Reaction Status Date / Time acetaminophen [From Tylenol] Allergy HYPERSENSIT Verified 03/24/18 16:44 IVITY amoxicillin Allergy HIVES Verified 03/24/18 16:44 aspirin Allergy HYPERSENSIT Verified 03/24/18 16:44 IVITY hydrochlorothiazide Allergy RASH Verified 03/24/18 16:44 [From Dyazide] lidocaine Allergy DIFFICULTY Verified 03/24/18 16:44 SWALLOWING methylprednisolone Allergy BEHAVIORAL Verified 03/24/18 16:44 CHANGES naproxen [From Naprosyn] Allergy RASH Verified 03/24/18 16:44 oxaprozin [From Daypro] Allergy bleeding Verified 03/24/18 16:44 propoxyphene napsylate Allergy RASH Verified 03/24/18 16:44 [From Darvocet-N] triamterene [From Dyazide] Allergy RASH Verified 03/24/18 16:44 diclofenac sodium AdvReac RAPID Verified 03/24/18 16:44 [From Arthrotec] HEART RATE hydrocodone bitartrate AdvReac RAPID Verified 03/24/18 16:44 [From Vicodin] HEART RATE indomethacin [From Indocin] AdvReac ABDOMINAL Verified 03/24/18 16:44 PAIN indomethacin sodium AdvReac ABDOMINAL Verified 03/24/18 16:44 [From Indocin] PAIN meperidine HCl [From Demerol] AdvReac NAUSEA AND Verified 03/24/18 16:44 VOMITING metoprolol succinate AdvReac slow heart Verified 03/24/18 16:44 [From Toprol XL] rate misoprostol [From Arthrotec] AdvReac RAPID Verified 03/24/18 16:44 HEART RATE oxycodone AdvReac DIZZINESS Verified 03/24/18 16:44 verapamil HCl [From Calan] AdvReac slow heart Verified 03/24/18 16:44 rate Review of Systems Constitutional: Denies: Chills, Fever Eyes: Denies: Eye discharge ENT: Denies: Congestion Respiratory: Denies: Cough, Dyspnea Past Medical History - SOCIAL HISTORY Smoking Status: Former smoker Drug Use: None - RESPIRATORY Hx Respiratory Disorders: No - CARDIOVASCULAR Hx Cardio Disorders: Yes Hx Abnormal EKG: No Hx Cardiac Cath: No Hx Chest Pain: No Hx CHF: No Hx Deep Vein Thrombosis: No Hx Edema: No Hx Heart Attack: No Hx Hypertension: Yes Hx Hypotension: No Hx Irregular Heartbeat: No Hx Palpitations: No Hx Pacemaker/Defib: No Hx Vascular Disease: No - NEURO Hx Neuro Disorders: No - GI Hx GI Disorders: Yes Hx Abdominal Pain: No Hx Celiac Disease: No Hx Crohn's Disease: No Hx Diverticulitis: No Hx GI Bleed: No Hx Reflux: No Hx Hepatitis/Jaundice: No Hx Hiatal Hernia: No Hx Irritable Bowel: Yes Hx Liver Disease: No Hx Nausea/Vomiting: No Hx Obstructive Bowel: No Hx Pancreatitis: No Hx Rectal Bleeding: No Hx Ulcer: No Hx Wt Loss/Wt Gain: No Hx of Polyps: No Comment:: stomach issues - Hx Genitourinary Disorders: Yes Hx Bladder Problem: Yes (frequency/overactive bladder) Hx Dialysis: No Hx Kidney Stones: No Hx Renal Disease: No Hx UTI: No Comment:: bladder lift surgery, hysterectomy - ENDOCRINE Hx Endocrine Disorders: No Hx Diabetes: No Hx Thyroid Disease: No - MUSCULOSKELETAL Hx Musculoskeletal Disorders: Yes Hx Arthritis: No Hx Back Injury: No Hx Fibromyalgia: No Hx Gout: No Hx Musculoskeletal Disease: No Hx Osteoporosis: No Comment:: scoliosis - PSYCH Hx Psych Problems: No - HEMATOLOGY/ONCOLOGY Hx Hematology/Oncology Disorders: Yes Hx Anemia: No Hx Blood Disorders: No Hx Bruising: No Hx Cancer: Yes (skin, newly diagnosed liver CA) Hx Chemotherapy: No Hx Radiation Therapy: No Hx Clotting Problems: No Hx Sickle Cell Disease: No Hx Unexplained Bleeding: No Hx Blood Transfusions: No Hx Blood Transfusion Reaction: No Family Medical History Hx Cancer: Brother/Sister Hx Heart Disease: Father Physical Exam - General General Appearance: Alert, Cooperative, No acute distress - Head Head exam: Atraumatic, Normocephalic, Normal inspection - Eye Eye exam: Normal appearance, PERRL, EOMI - Neck Neck exam: Normal inspection, Full ROM. negative: Tenderness - Respiratory Respiratory exam: Normal lung sounds bilaterally. negative: Respiratory distress - Cardiovascular Cardiovascular Exam: Regular rate, Normal rhythm, Normal heart sounds - GI/Abdominal GI/Abdominal exam: Soft, Normal bowel sounds. negative: Tenderness - Extremities Extremities exam: Other (The patient has dirty lower leg bandages in place that were changed.). negative: Normal inspection - Back Back exam: Reports: Normal inspection. Denies: Paraspinal tenderness, Vertebral tenderness - Neurological Neurological exam: Alert, Normal gait, Oriented X3. negative: Abnormal gait, Altered, Motor sensory deficit Course - Reevaluation(s) Reevaluation #1: We did change the patient's bandages and did get her up walking. She was walking normally with no ataxia or unsteadiness. She does feel comfortable going home. 03/24/18 16:52 Disposition Disposition: Discharge Clinical Impression: Fall Qualifiers: Encounter type: initial encounter Qualified Code(s): W19.XXXA - Unspecified fall, initial encounter Disposition: Home, Self-Care Condition: (2) Stable Instructions: Fall Prevention for Older Adults (ED) Additional Instructions: Please continue your regular medicines and please see your doctor next week as needed. Return to the ER for any worsening symptoms. Forms: Patient Portal Access Time of Disposition: 16:54 Quality - Quality Measures Quality Measures: N/A - Blood Pressure Screening View Details: Yes Does Patient Have Any of the Following: No Blood Pressure Classification: Pre-Hypertensive BP Reading Systolic Measurement: 138 Diastolic Measurement: 85 Screening for High Blood Pressure: < Pre-Hypertensive BP, F/U Documented > [ [id number]] Pre-Hypertensive Follow-up Interventions: Referral to alternative/primary care provider.
== END 2018-03-24 17:00 | disposition home or self-care (01) ==
LOC: ER 16:32
DX: Z48.00 Encounter for change or removal of nonsurgical wound dressing (principal); W01.0XXA Fall on same level from slipping, tripping and stumbling without subsequent striking against object, initial encounter; Y92.008 Other place in unspecified non-institutional (private) residence as the place of occurrence of the external cause; I10 Essential (primary) hypertension; Z87.891 Personal history of nicotine dependence
CPT/HCPCS: 99282